=== PATIENT | male | born 1960 | race Caucasian/White ===

== ENCOUNTER 2018-08-06 00:46 | Inpatient (IN) ==
[2018-08-06] MEDS ORDERED: 0.9 % Sodium Chloride 1,000 ML IVC ONE (01:03)
[2018-08-06 01:17] LABS: Eosinophils % 0.8 %; Hemoglobin 8.8 g/dL (12.9-16.9); Immature Granulocytes % 0.5 % (0-4)
[2018-08-06 01:19] LABS: Basophils % 0.5 %; Hematocrit 24.5 % (37.5-50.1); Immature Platelets 2.9 % (1.1-6.1); Lymphocytes # 1.1 K/mcL (0.6-4.6); Lymphocytes % 29.8 %; Mean Corpuscular HGB Conc 35.9 g/dL (31.6-35.5); Mean Corpuscular Hemoglobin 35.3 pg (28.0-33.3); Mean Corpuscular Volume 98.4 fL (83.0-100.0); Mean Platelet Volume 9.6 fL (9.4-12.4); Monocytes # 0.4 K/mcL (0.0-1.3); Monocytes % 11.5 %; Neutrophils # 2.2 K/mcL (1.6-8.9); Red Blood Count 2.49 M/mcL (4.19-5.50); Red Cell Distribution Width 16.9 % (11.5-14.5); Segmented Neutrophils % 56.9 %
[2018-08-06 01:23] LABS: INR 1.5; Prothrombin Time 17.1 Seconds (9.4-12.1)
[2018-08-06 01:26] LABS: Activated Partial Thrombo Time 32.3 Seconds (26.0-36.0)
[2018-08-06 01:29] LABS: Troponin I < 0.03 ng/mL (< 0.04)
[2018-08-06 01:34] LABS: Alanine Aminotransferase 103 Units/L (7-52); Albumin 2.6 g/dL (3.5-5.7); Albumin/Globulin Ratio 0.7 (1.1-2.2); Alkaline Phosphatase 155 Units/L (34-104); Aspartate Amino Transferase 335 Units/L (13-39); BUN/Creatinine Ratio 8 (6-26); Bilirubin,Indirect 0.9 mg/dL (0.0-1.2); Bilirubin,Total 1.9 mg/dL (0.3-1.0); Blood Urea Nitrogen 10 mg/dL (6-20); Calcium 8.3 mg/dL (8.6-10.3); Carbon Dioxide 21 mEq/L (23-29); Chloride 94 mEq/L (98-107); Ethanol 27 mg/dL (Less than 10); Glucose 117 mg/dL (70-105); Osmolality,Calculated 256 (280-300); Potassium 2.4 mEq/L (3.5-5.1); Sodium 123 mEq/L (136-145); Total Protein 6.6 g/dL (6.4-8.9); eGFR For Non-African Americans > 60 (> 60)
[2018-08-06 01:37] LABS: Platelet Count 97 K/mcL (140-400)
[2018-08-06 01:51] LABS: Bilirubin,Urine Moderate (Negative); Blood,Urine Negative (Negative); Clarity,Urine Cloudy (Clear); Color,Urine Dark Yellow (Yellow); Glucose,Urine (UA) Normal (Normal); Ketones,Urine Trace mg/dL (Negative); Leukocyte Esterase,Urine Negative (Negative); Nitrite,Urine Negative (Negative); Protein,Urine Trace mg/dL (Neg-Trace); Specific Gravity,Urine 1.014 (1.010-1.025)
[2018-08-06 01:52] LABS: Bacteria,Urine None Seen per hpf (None-Few); Hyaline Casts,Urine Few per lpf (None-Few)
[2018-08-06 01:59] LABS: Squamous Epithelial Cell,Urine Few per lpf (None-Few)
[2018-08-06 02:02] LABS: Amphetamine Screen,Urine Positive ng/mL (Cutoff=1000); Barbiturate Screen,Urine Negative ng/mL (Cutoff=200); Benzodiazepines Screen,Urine Negative ng/mL (Cutoff=200); Cannabinoid Screen,Urine Negative ng/mL (Cutoff = 50); Cocaine Screen,Urine Negative ng/mL (Cutoff= 300); Opiate Screen,Urine Negative ng/mL (Cutoff=300); Phencyclidine Screen,Urine Negative ng/mL (Cutoff=25)
--- NOTE | 2018-08-06 03:17 | Emergency Department Note ---
Disposition Clinical Impression: Hyperammonemia, Pancytopenia, Hyponatremia Altered mental state Qualifiers: Altered mental status type: unspecified Qualified Code(s): R41.82 - Altered mental status, unspecified Alcoholic intoxication Qualifiers: Complication of substance-induced condition: uncomplicated Qualified Code(s): F10.920 - Alcohol use, unspecified with intoxication, uncomplicated GI bleed Qualifiers: GI bleed type/associated pathology: unspecified gastrointestinal hemorrhage type Qualified Code(s): K92.2 - Gastrointestinal hemorrhage, unspecified Disposition: Admitted As Inpatient Condition: Fair Referrals: NONE,PCP [Non-Partnered Physician] - Time of Disposition: 04:23 Altered Mental Status HPI - General Chief Complaint: ED Altered Mental Status Stated Complaint: unresponsive hypotension Time Seen by Provider: 08/06/18 00:49 Source: patient, EMS Limitations: altered mental status Nursing Notes Reviewed: Yes Vital Signs Reviewed: Yes - History of Present Illness HPI Narrative: Patient is a 58-year-old male who presents to [facility] ED unresponsive via EMS. Patient was found outside of a drug house unresponsive with a laceration to the back of his head. He was given 2 mg of Narcan without response. Upon presenting to emergency department, patient will moan with sternal rub and open his eyes to sternal rub. Is unable to verbally communicate at this time. EMS unsure of patient's medical history. MD complaint: decreased responsiveness Onset (ago): Just SKIAGRAPHER Context: alcohol abuse, drug abuse - Related Data Home Medications Medication Instructions Recorded Confirmed ALPRAZolam [Xanax 1 MG Tablet] 1 mg PO TID PRN 09/29/16 09/29/16 Albuterol Sulfate [Proair 2 puff IH Q4H PRN 09/29/16 09/29/16 Respiclick] Allopurinol [Allopurinol] 300 mg PO DAILY 09/29/16 09/29/16 Amitriptyline [Elavil] 25 mg PO HS 09/29/16 09/29/16 Amlodipine Besylate/Benazepril 1 each PO DAILY 09/29/16 09/29/16 [Lotrel 10-20 mg Capsule] Calcium Carbonate/Vitamin D3 1 each PO DAILY 09/29/16 09/29/16 [Calcium 600 + Vit D Tablet] Carvedilol [Carvedilol] 12.5 mg PO QPM 09/29/16 09/29/16 Carvedilol [Carvedilol] 25 mg PO QAM 09/29/16 09/29/16 Cholecalciferol (Vitamin D3) 50,000 unit PO QWEEK 09/29/16 09/29/16 [Vitamin D] Ezetimibe [Zetia] 10 mg PO DAILY 09/29/16 09/29/16 Fenofibrate [Lofibra] 160 mg PO DAILY 09/29/16 09/29/16 Fluticasone/Salmeterol [Advair 1 each IH BID 09/29/16 09/29/16 250-50 Diskus] Hydrocodone/Acetaminophen [[place] 1 each PO TID PRN 09/29/16 09/29/16 5-325 Tablet] Ipratropium/Albuterol Neb [Duoneb] 3 ml IH QID PRN 09/29/16 09/29/16 Loratadine [Claritin] 10 mg PO DAILY 09/29/16 09/29/16 Omeprazole [PriLOSEC] 20 mg PO BID 09/29/16 09/29/16 Potassium Chloride [K-Tab ER] 20 meq PO DAILY 09/29/16 09/29/16 Tiotropium [place] [Spiriva] 18 mcg IH DAILY 09/29/16 09/29/16 Zolpidem [Ambien] 10 mg PO HS 09/29/16 09/29/16 hydroCHLOROthiazide 25 mg PO DAILY 09/29/16 09/29/16 [Hydrochlorothiazide] Previous Rx's Medication Instructions Recorded Chlordiazepoxide [Librium] 25 mg PO TID 14 Days capsule 10/01/16 LORazepam [Ativan] 1 mg PO TID 6 Days tablet 10/01/16 Sulfamethoxazole/Trimeth DS 1 each PO BID #14 tablet 10/06/16 [Bactrim DS] Allergies Allergy/AdvReac Type Severity Reaction Status Date / Time No Known Allergies Allergy Verified 09/23/16 14:46 All systems ED: reviewed and negative except as stated. Past Medical History - Past Medical History Source: old records reviewed Medical history: Reports: arthritis, COPD, GERD, hyperlipidemia, hypertension, liver disease, seizures, syncope, other Surgical history: Reports: other Psychiatric history: Reports: anxiety, panic disorder - Social History Smoking Status: Current every day smoker Smokeless Tobacco Status: No Alcohol use: Reports: occasionally Drug use: Reports: none Physical Exam - General Limitations: no limitations General appearance: lethargic - Expanded Head Exam Head exam physicial: Present: other (posterior 2cm scalp laceration) - Eye Eye exam: Present: normal appearance, PERRL, EOMI - ENT ENT exam: normal exam, normal oropharynx, mucous membranes moist - Neck Neck exam: Present: normal inspection, full ROM, trachea midline - Chest Chest inspection: Present: normal inspection, symmetric chest wall rise - Respiratory Respiratory exam: Present: normal lung sounds bilaterally - Cardiovascular Cardiovascular exam: Present: regular rate, normal rhythm, normal heart sounds - Abdominal Exam Abdominal exam: Present: soft, Non-Tender. Absent: tenderness, distention, guarding, rebound, rigidity - Extremities Exam Extremities exam: Present: normal inspection, full ROM. Absent: tenderness, pedal edema - Expanded Neurological Exam Patient oriented to: Present: person Coma Scale Eye Opening: To Pain Coma Scale Motor Response: Localizes to Pain Coma Scale Verbal Response: Incomprehensible Coma Scale Total: 9 - Psychiatric Psychiatric exam: Present: normal affect, normal mood - Skin Skin exam: Present: warm, dry, intact, normal color Course Course Narrative: Patient seen and examined. Initially unresponsive. Concern for possible intracranial bleed due to patient's sign of trauma with his head laceration. Patient assessed quickly via ATLS all rhythm. His breath sounds are clear bilaterally. Pulses intact bilaterally. He is hypertensive upon my initial examination. Liter of fluid was pressure bagged in which did improve the patient's blood pressure. His oxygen saturation remained 100% on room air. Initial FAST exam negative for any signs of intra-abdominal hemorrhage. Patient was taken to CT scan in stable condition for CT of the head and cervical spine. We will get a chest and pelvic x-ray as well. - Reevaluation(s) Reevaluation #1: CT of the head and cervical spine unremarkable. Lab work showed signs of elevated ammonia of 100 as well as hypokalemia with potassium of 2.4. 40 mEq IV potassium ordered. In the interim, was discovered that patient has bedbugs. His scalp laceration will be repaired with lance. Patient did wake up some more and was able to tell me his name. He also told me that he took Valium pills. When asked how many, he stated he took around 6. Patient has been admitted for altered mental status, hyperammonemia, alcohol intoxication, Valium overdose. Time: 03:25 Vital Signs Temperature 97.7 F 08/06/18 00:47 Pulse Rate 74 08/06/18 00:47 Respiratory Rate 18 08/06/18 00:47 Blood Pressure 108/68 08/06/18 00:47 O2 Sat by Pulse Oximetry 100 08/06/18 00:47 Temperature 97.0 F L 08/06/18 05:33 Pulse Rate 65 08/06/18 05:33 Respiratory Rate 18 08/06/18 05:33 Blood Pressure 95/71 08/06/18 05:33 O2 Sat by Pulse Oximetry 100 08/06/18 05:33 Oxygen Delivery Oxygen Delivery Nasal Cannula Altered Mental Status - Medical Records Medical records reviewed: Yes I reviewed the patient's medical records. - Lab Data Lab results reviewed: Yes I reviewed the patient's lab results. Result diagrams: 08/06/18 00:48 08/06/18 00:48 Lab Results 08/06/18 08/06/18 08/06/18 Range/Units 00:48 00:48 00:48 WBC 3.8 L (4.3-11.1) K/mcL RBC 2.49 L (4.19-5.50) M/mcL Hgb 8.8 L (12.9-16.9) g/dL Hct 24.5 L (37.5-50.1) % MCV 98.4 (83.0-100.0) fL MCH 35.3 H (28.0-33.3) pg MCHC 35.9 H (31.6-35.5) g/dL RDW 16.9 H (11.5-14.5) % Plt Count 97 L (140-400) K/mcL MPV 9.6 (9.4-12.4) fL Immature Gran % 0.5 (0-4) % Seg Neutrophils % 56.9 % Lymphocytes % 29.8 % Monocytes % 11.5 % Eosinophils % 0.8 % Basophils % 0.5 % Neutrophils # 2.2 (1.6-8.9) K/mcL Lymphocytes # 1.1 (0.6-4.6) K/mcL Monocytes # 0.4 (0.0-1.3) K/mcL Eosinophils # 0.0 (0.0-0.6) K/mcL Basophils # 0.0 (0.0-0.2) K/mcL Immature Plt Fraction 2.9 (1.1-6.1) % PT 17.1 H (9.4-12.1) Seconds INR 1.5 APTT 32.3 (26.0-36.0) Seconds Sodium 123 L (136-145) mEq/L Potassium 2.4 L* (3.5-5.1) mEq/L Chloride 94 L (98-107) mEq/L Carbon Dioxide 21 L (23-29) mEq/L BUN 10 (6-20) mg/dL Creatinine 1.21 (0.70-1.30) mg/dL Est GFR ( Amer) > 60 (> 60) Est GFR (Non-Af Amer) > 60 (> 60) BUN/Creatinine Ratio 8 (6-26) Glucose 117 H (70-105) mg/dL POC Glucose (70-99) mg/dL Calculated Osmolality 256 L (280-300) Calcium 8.3 L (8.6-10.3) mg/dL Total Bilirubin 1.9 H (0.3-1.0) mg/dL Direct Bilirubin 1.0 H (0.0-0.2) mg/dL Indirect Bilirubin 0.9 (0.0-1.2) mg/dL AST 335 H (13-39) Units/L ALT 103 H (7-52) Units/L Alkaline Phosphatase 155 H (34-104) Units/L Ammonia (16-53) mcmol/L Troponin I < 0.03 (< 0.04) ng/mL Serum Total Protein 6.6 (6.4-8.9) g/dL Albumin 2.6 L (3.5-5.7) g/dL Globulin 4.0 H (2.4-3.5) g/dL Albumin/Globulin Ratio 0.7 L (1.1-2.2) Urine Color (Yellow) Urine Clarity (Clear) Urine pH (5.0-8.0) pH Units Ur Specific [place] (1.010-1.025) Urine Protein (Neg-Trace) mg/dL Urine Glucose (UA) (Normal) mg/dL Urine Ketones (Negative) mg/dL Urine Blood (Negative) Urine Nitrite (Negative) Urine Bilirubin (Negative) Urine Urobilinogen (Normal) mg/dL Ur Leukocyte Esterase (Negative) Urine Microscopic RBC (0-3) per hpf Urine Microscopic WBC (0-3) per hpf Ur Squamous Epith Cells (None-Few) per lpf Urine Bacteria (None-Few) per hpf Hyaline Casts (None-Few) per lpf Ur Culture Indicated? (NO) Stool Occult Bld Scrn (Negative) Urine Opiates Screen (Vmrkeu=075) ng/mL Ur Barbiturates Screen (Dcjbqc=381) ng/mL Ur Phencyclidine Scrn (Cutoff=25) ng/mL Ur Amphetamines Screen (Nyaqet=6166) ng/mL U Benzodiazepines Scrn (Qafqya=519) ng/mL Urine Cocaine Screen (Cutoff= 300) ng/mL U Marijuana (THC) Screen (Cutoff = 50) ng/mL Ur Drug Screen Interp Ethyl Alcohol 27 H (Less than 10) mg/dL 08/06/18 08/06/18 08/06/18 Range/Units 00:48 01:40 01:40 WBC (4.3-11.1) K/mcL RBC (4.19-5.50) M/mcL Hgb (12.9-16.9) g/dL Hct (37.5-50.1) % MCV (83.0-100.0) fL MCH (28.0-33.3) pg MCHC (31.6-35.5) g/dL RDW (11.5-14.5) % Plt Count (140-400) K/mcL MPV (9.4-12.4) fL Immature Gran % (0-4) % Seg Neutrophils % % Lymphocytes % % Monocytes % % Eosinophils % % Basophils % % Neutrophils # (1.6-8.9) K/mcL Lymphocytes # (0.6-4.6) K/mcL Monocytes # (0.0-1.3) K/mcL Eosinophils # (0.0-0.6) K/mcL Basophils # (0.0-0.2) K/mcL Immature Plt Fraction (1.1-6.1) % PT (9.4-12.1) Seconds INR APTT (26.0-36.0) Seconds Sodium (136-145) mEq/L Potassium (3.5-5.1) mEq/L Chloride (98-107) mEq/L Carbon Dioxide (23-29) mEq/L BUN (6-20) mg/dL Creatinine (0.70-1.30) mg/dL Est GFR ( Amer) (> 60) Est GFR (Non-Af Amer) (> 60) BUN/Creatinine Ratio (6-26) Glucose (70-105) mg/dL POC Glucose (70-99) mg/dL Calculated Osmolality (280-300) Calcium (8.6-10.3) mg/dL Total Bilirubin (0.3-1.0) mg/dL Direct Bilirubin (0.0-0.2) mg/dL Indirect Bilirubin (0.0-1.2) mg/dL AST (13-39) Units/L ALT (7-52) Units/L Alkaline Phosphatase (34-104) Units/L Ammonia 100 H (16-53) mcmol/L Troponin I (< 0.04) ng/mL Serum Total Protein (6.4-8.9) g/dL Albumin (3.5-5.7) g/dL Globulin (2.4-3.5) g/dL Albumin/Globulin Ratio (1.1-2.2) Urine Color Dark Yellow (Yellow) Urine Clarity Cloudy A (Clear) Urine pH 6.0 (5.0-8.0) pH Units Ur Specific [place] 1.014 (1.010-1.025) Urine Protein Trace (Neg-Trace) mg/dL Urine Glucose (UA) Normal (Normal) mg/dL Urine Ketones Trace H (Negative) mg/dL Urine Blood Negative (Negative) Urine Nitrite Negative (Negative) Urine Bilirubin Moderate H (Negative) Urine Urobilinogen 4.0 H (Normal) mg/dL Ur Leukocyte Esterase Negative (Negative) Urine Microscopic RBC 5-15 H (0-3) per hpf Urine Microscopic WBC 3-5 H (0-3) per hpf Ur Squamous Epith Cells Few (None-Few) per lpf Urine Bacteria None Seen (None-Few) per hpf Hyaline Casts Few (None-Few) per lpf Ur Culture Indicated? NO (NO) Stool Occult Bld Scrn (Negative) Urine Opiates Screen Negative (Tyxkvy=435) ng/mL Ur Barbiturates Screen Negative (Kfkawl=437) ng/mL Ur Phencyclidine Scrn Negative (Cutoff=25) ng/mL Ur Amphetamines Screen Positive H (Mdyuqi=7289) ng/mL U Benzodiazepines Scrn Negative (Uecwkf=231) ng/mL Urine Cocaine Screen Negative (Cutoff= 300) ng/mL U Marijuana (THC) Screen Negative (Cutoff = 50) ng/mL Ur Drug Screen Interp See Below Ethyl Alcohol (Less than 10) mg/dL 08/06/18 08/06/18 Range/Units 02:32 05:31 WBC (4.3-11.1) K/mcL RBC (4.19-5.50) M/mcL Hgb (12.9-16.9) g/dL Hct (37.5-50.1) % MCV (83.0-100.0) fL MCH (28.0-33.3) pg MCHC (31.6-35.5) g/dL RDW (11.5-14.5) % Plt Count (140-400) K/mcL MPV (9.4-12.4) fL Immature Gran % (0-4) % Seg Neutrophils % % Lymphocytes % % Monocytes % % Eosinophils % % Basophils % % Neutrophils # (1.6-8.9) K/mcL Lymphocytes # (0.6-4.6) K/mcL Monocytes # (0.0-1.3) K/mcL Eosinophils # (0.0-0.6) K/mcL Basophils # (0.0-0.2) K/mcL Immature Plt Fraction (1.1-6.1) % PT (9.4-12.1) Seconds INR APTT (26.0-36.0) Seconds Sodium (136-145) mEq/L Potassium (3.5-5.1) mEq/L Chloride (98-107) mEq/L Carbon Dioxide (23-29) mEq/L BUN (6-20) mg/dL Creatinine (0.70-1.30) mg/dL Est GFR ( Amer) (> 60) Est GFR (Non-Af Amer) (> 60) BUN/Creatinine Ratio (6-26) Glucose (70-105) mg/dL POC Glucose 138 H (70-99) mg/dL Calculated Osmolality (280-300) Calcium (8.6-10.3) mg/dL Total Bilirubin (0.3-1.0) mg/dL Direct Bilirubin (0.0-0.2) mg/dL Indirect Bilirubin (0.0-1.2) mg/dL AST (13-39) Units/L ALT (7-52) Units/L Alkaline Phosphatase (34-104) Units/L Ammonia (16-53) mcmol/L Troponin I (< 0.04) ng/mL Serum Total Protein (6.4-8.9) g/dL Albumin (3.5-5.7) g/dL Globulin (2.4-3.5) g/dL Albumin/Globulin Ratio (1.1-2.2) Urine Color (Yellow) Urine Clarity (Clear) Urine pH (5.0-8.0) pH Units Ur Specific [place] (1.010-1.025) Urine Protein (Neg-Trace) mg/dL Urine Glucose (UA) (Normal) mg/dL Urine Ketones (Negative) mg/dL Urine Blood (Negative) Urine Nitrite (Negative) Urine Bilirubin (Negative) Urine Urobilinogen (Normal) mg/dL Ur Leukocyte Esterase (Negative) Urine Microscopic RBC (0-3) per hpf Urine Microscopic WBC (0-3) per hpf Ur Squamous Epith Cells (None-Few) per lpf Urine Bacteria (None-Few) per hpf Hyaline Casts (None-Few) per lpf Ur Culture Indicated? (NO) Stool Occult Bld Scrn Positive A (Negative) Urine Opiates Screen (Aagjjt=417) ng/mL Ur Barbiturates Screen (Ttqilh=902) ng/mL Ur Phencyclidine Scrn (Cutoff=25) ng/mL Ur Amphetamines Screen (Jnvxcn=5181) ng/mL U Benzodiazepines Scrn (Jmbovl=656) ng/mL Urine Cocaine Screen (Cutoff= 300) ng/mL U Marijuana (THC) Screen (Cutoff = 50) ng/mL Ur Drug Screen Interp Ethyl Alcohol (Less than 10) mg/dL - Radiology Data Radiology results reviewed: Yes I reviewed the patient's radiology results. Cervical Spine CT 08/06/18 00:52 IMPRESSION: No acute intracranial abnormality. No acute osseous fracture of the cervical spine. Image quality degraded by motion. D/ / Mike Bazzi / Mike Bazzi Interpreting Provider: Mike Bazzi Head CT 08/06/18 00:52 IMPRESSION: No acute intracranial abnormality. No acute osseous fracture of the cervical spine. Image quality degraded by motion. D/ / Mike Bazzi / Mike Bazzi Interpreting Provider: Mike Bazzi Chest X-Ray 08/06/18 00:59 IMPRESSION: Possible pulmonary edema. Otherwise negative portable chest. D/ / Poli Rodriguez MD / Poli Rodriguez MD Interpreting Provider: Poli Rodriguez MD Pelvis X-Ray 08/06/18 00:59 IMPRESSION: No definite fracture. D/ / Poli Rodriguez MD / Poli Rodriguez MD Interpreting Provider: Poli Rodriguez MD - EKG Data EKG attestation: Yes I reviewed and interpreted this EKG. EKG results narrative: EKG done at 123 shows normal sinus rhythm with a rate of [address] elevation or depression noted. Normal axis. TPA Checklist - LKW: 3-4.5 hrs Add. Warnings/Precautions Patient/family understanding: The patient/family members have been counseled and understood the risk, benefit , and alternatives of treatment. Attestation Statement - Attestation Attestation: I, Tim Wang, examined this patient and my medical decision-making was reviewed with the [employer]/PA/Advanced Practice Nurse/Resident Physician. I agree with the documented findings, disposition and treatment plan as described except to the extent set forth below. 58-year-old male brought to the emergency department for altered mental status. Per EMS, patient was found in the house that has been known for illicit drug use. They state they gave him Narcan with minimal to no improvement of his symptoms. EMS states that he was hypotensive in route to the emergency department. On recheck in the emergency department he has a BP of 108 systolic , he is responsive to painful stimuli, he is however unable to carry a conversation and give a history regarding his case and presentation. EKG showed a normal sinus rhythm with a rate of 71 without evidence of STEMI or other dysrhythmia. Pupils were midsized bilaterally. Repeat dose of Narcan emergency department had no effect. Laboratory evaluation showed a pancytopenia which was not present on previous laboratory results. Rectal exam performed in the emergency department showed brown guaiac negative stool. CT of his head was negative for acute fracture or intracranial hemorrhage or mass. Patient had elevation of his ammonia level. He also had evidence of hypokalemia. At one point during his evaluation the patient awoke enough to report that he had taken "extra of his Valium" he reported taking about 5 pills of his Valium which is an unknown strength. Patient was not given lactulose in the emergency department as diarrhea would make his hypokalemia worse. I spoke with the hospitalist who is comfortable with the plan for admission to hospital for repletion of his potassium and then further evaluation of his hyperammonemia. Vital signs stable prior to admission.
[2018-08-06] MEDS ORDERED: cefTRIAXone 2,000 MG in Water for inj. (sterile) 20 ML 20 ML IVP ONE (03:28)
[2018-08-06] MEDS ORDERED: *HR* LORazepam 2 MG/ML VIAL IVP PRN ×2 (04:09)
[2018-08-06] MEDS ORDERED: Naloxone 0.4 MG/ML INJ IVP PRN (04:09)
--- NOTE | 2018-08-06 04:33 | Internal Med History&Physical ---
<Reji aBnuelos - Last Filed: 08/06/18 04:26> Date of Encounter: 08/06/18 Time of Encounter: 04:26 Internal Medicine - H&P: HPI Chief complaint: unresponsive Admitted From: Home Plans for Post Hospital Care: Home History of present illness: Mr. Taylor is a 58 year old male presented to emergency department unresponsive via EMS. History is obtained from EMR's as patient is not responding to any questions. Patient was found outside of drug house unresponsive with a laceration in the back of his head. He was given Narcan without any response in the emergency room. And only responded to sternal rub initially. Patient underwent CT of the head, chest x-ray pelvis x-ray and cervical spine CT which were all negative. FAST exam was negative as per ER. His labs showed hemoglobin 8.8 which is a decline from his baseline of 12. Patient, was 97 which is also decline from platelet count of 200s in March 2018. Ammonia was 100. INR is elevated 1.5. Patient was hyponatremic with a sodium 123, hypokalemic with potassium of 2.4. Fecal occult blood was positive. Urinalysis positive for amphetamines. Elevated alcohol level of 27. Patient was given 40 mEq IV potassium by ER. From reviewing medical records, patient has history of alcoholic cirrhosis. He previously presented to the emergency room on March 2018 for jaundice. In the past his UDS has been positive for benzodiazepines as well. He has also been admitted for withdrawal seizures from alcohol. Upon my examination the patient , he was very somnolent and now responding to verbal stimuli however does not answer any questions and clinically falls asleep. About one hour after my examination ER called and reported patient is more awake and took five valium pills (unknown dose). Past Med Surg Social Fam HX - Past Medical History Medical history: arthritis, COPD, GERD, hyperlipidemia, hypertension, liver disease, seizures, syncope, other Psychiatric history: anxiety, panic disorder - Past Surgical History Surgical History: other Additional surgical history: eye surgery - Social History Smoking Status: Current every day smoker Smokeless Tobacco Status: No Alcohol use: occasionally, heavy Drug use: methamphetamine, other (Benzodiazepine) Internal Medicine - H&P: Meds Amlodipine Besylate/Benazepril [Lotrel 10-20 mg Capsule] 1 each PO DAILY [History] Omeprazole [PriLOSEC] 20 mg PO BID 09/29/16 [History] hydroCHLOROthiazide [Hydrochlorothiazide] 25 mg PO DAILY 09/29/16 [History] Albuterol Sulfate [Ventolin Hfa] 2 puff IH Q6H PRN 08/06/18 [History] Fluticasone/Vilanterol [Breo Ellipta 100-25 Mcg INH] 1 puff IH DAILY 08/06/18 [ History] Metoprolol [Lopressor] 25 mg PO BID 08/06/18 [History] Paroxetine [Paxil] 20 mg PO DAILY 08/06/18 [History] hydrOXYzine pamoate [HydrOXYzine Pamoate] 25 - 50 mg PO Q6H PRN 08/06/18 [ History] Folic Acid 1 mg PO DAILY #30 tablet 08/09/18 [Rx] Pantoprazole [Protonix] 40 mg IVP DAILY #30 vial 08/09/18 [Rx] Thiamine (B-1) [Vitamin B-1] 100 mg PO DAILY #30 tablet 08/09/18 [Rx] hydroCHLOROthiazide [Hydrochlorothiazide] 25 mg PO DAILY #30 tablet 08/09/18 [Rx ] 3 Allergy/AdvReac Type Severity Reaction Status Date / Time No Known Allergies Allergy Verified 09/23/16 14:46 ROS unobtainable: due to mental status All Systems PM: A 10-system review of systems was performed and is negative for pertinent findings except as documented above in the HPI. - Constitutional Vitals: Temp Pulse Resp BP Pulse Ox 97.7 F 63 18 98/66 100 08/06/18 00:47 08/06/18 04:18 08/06/18 04:18 08/06/18 04:18 08/06/18 04:18 Exam: General: Disheveled, somnolent male HEENT: Laceration on the occipital region stapled with some dried blood, PERRL, absent ear discharge or trauma, unable to do a well examined due to patient not cooperating. Neck: nontender to palpation, absent lymphadenopathy, Cardiovascualr: Regular rate and rhythm with no murmur, gallops or rubs, absent pedal adenma, radial pulses 2 out of 4 Lungs: Clear to auscultation bilaterally, not in respiratory distress Abdomen: Soft nontender, nondistended positive bowel sounds, Skin: warm and dry, absent rash, open wounds, nodules MSK: absent clubbing, cyanosis, joints without swelling Neuro: Unable to do neuro exam due to patient not cooperating. Awakens to verbal stimuli Psych: Unable to do due to mental status Internal Med - H&P Results - Labs CBC & Chem 7: 08/06/18 00:48 08/06/18 00:48 - Assessment and plan (1) Hepatic encephalopathy Status: Acute Assessment and plan: 58 y/o male presented unresponsive. Brought to ED via EMS after being found in front of drug house Patient has history of alcohol some, hepatitis C, cirrhosis, drug use His ammonia was elevated 100, AST ALTs, bilirubin were also elevated currently awakens to verbal stimuli but quickly dozes off plan: liver US, repeat CMP, NPO, if encephalopathy worsens may need lactulose enemas. swallow eval (2) GI bleed Status: Acute Assessment and plan: hgb decreased from 12-8.8 + stool guiac no known hx of varacies BP stable will start protonix 40mg IV BID consult GI clear liquid diet Qualifiers: GI bleed type/associated pathology: unspecified gastrointestinal hemorrhage type Qualified Code(s): K92.2 - Gastrointestinal hemorrhage, unspecified (3) Cirrhosis Status: Chronic Assessment and plan: hx of cirrhosis likely alcoholic as he has extensive hx of alcohol abuse however also has history of Hepatitis C Meld-NA 25 (14-15% 90 day mortality) liver US ordered GI consulted. Qualifiers: Hepatic cirrhosis type: alcoholic cirrhosis Ascites presence: unspecified Qualified Code(s): K70.30 - Alcoholic cirrhosis of liver without ascites (4) Illicit drug use Status: Acute Assessment and plan: hx of benzodiazepine, amphetamine use Patient himself reports that he took 5 pills of Valium and his UDS was positive for amphetamines. Of alcohol was elevated at 27 (5) Hypokalemia Status: Chronic Assessment and plan: Patient has history of hypokalemia Potassium was on admission and he is receiving IV potassium will give potassium 40meq Po elixer once patient has passed swallow eval. (6) Hyponatremia Status: Acute Assessment and plan: Patient's sodium is 123 which is belowline Likely secondary to cirrhosis We will order serum osmolality, urine osmolality, urine sodium No indication for 3% normal saline (7) Alcohol abuse with alcohol-induced disorder Status: Acute (8) Hepatitis C Status: Acute Assessment and plan: Patient had a positive hepatitis C antibody on 09/30/16 GI was consulted and recommend patient follow-up GI outpatient. Qualifiers: Viral hepatitis chronicity: unspecified Hepatic coma status: without hepatic coma Qualified Code(s): B19.20 - Unspecified viral hepatitis C without hepatic coma (9) DVT prophylaxis Status: Acute Assessment and plan: epcds, - Time Spent With Patient Total time spent is greater than 50% in coordination of care (as documented) at patient's floor/unit and/or counseling patient: <Galileo Calderon - Last Filed: 08/10/18 11:28> Date of Encounter: 08/06/18 Internal Medicine - H&P: HPI History of present illness: Mr. Taylor is a 58 year old male All Systems PM: A 10-system review of systems was performed and is negative for pertinent findings except as documented above in the HPI. - Constitutional Vitals: Temp Pulse Resp BP Pulse Ox 98.1 F 60 14 147/84 99 08/09/18 15:36 08/09/18 16:00 08/09/18 16:00 08/09/18 16:00 08/09/18 16:00 Internal Med - H&P Results - Labs CBC & Chem 7: 08/09/18 04:29 08/09/18 04:29 - Impressions ITS Impressions Liver Ultrasound 08/06/18 15:00 IMPRESSION: Cirrhosis with a trace amount of ascites. Sludge within the gallbladder with associated wall thickening. Trace amount of fluid in the gallbladder fossa likely related to underlying liver dysfunction. Patient has no reported sonographic Mcghee sign. If there is clinical concern for biliary dysfunction a nuclear medicine hepatobiliary scan could always be considered to further evaluate. D/ / 08/06/2018 16:37:22 Law Cameron MD / [facility] Interpreting Provider: Law Cameron MD - Assessment and plan (1) Alcohol abuse with alcohol-induced disorder Status: Acute (2) Hepatitis C Status: Chronic Qualifiers: Viral hepatitis chronicity: unspecified Hepatic coma status: without hepatic coma Qualified Code(s): B19.20 - Unspecified viral hepatitis C without hepatic coma (3) Hepatic encephalopathy Status: Resolved (4) Illicit drug use Status: Acute (5) GI bleed Status: Acute Qualifiers: GI bleed type/associated pathology: unspecified gastrointestinal hemorrhage type Qualified Code(s): K92.2 - Gastrointestinal hemorrhage, unspecified (6) Hypokalemia Status: Chronic (7) Hyponatremia Status: Resolved (8) Cirrhosis Status: Chronic Qualifiers: Hepatic cirrhosis type: alcoholic cirrhosis Ascites presence: unspecified Qualified Code(s): K70.30 - Alcoholic cirrhosis of liver without ascites (9) DVT prophylaxis Status: Acute - Time Spent With Patient Total time spent is greater than 50% in coordination of care (as documented) at patient's floor/unit and/or counseling patient: - Attending Attestation Patient seen and examined. Case discussed with resident. Agree with A/P. Encephalopathy likely medication induced. R/O other causes.
[2018-08-06] MEDS: Pantoprazole 40 MG VIAL IVP SCH ×2 (05:57→17:47)
[2018-08-06] MEDS ORDERED: Lidocaine -MPF 2% 2 ML VIAL ONE (07:27)
[2018-08-06 07:40] LABS: Basophils % 0.7 %; Immature Granulocytes % 0.7 % (0-4); Mean Platelet Volume 9.2 fL (9.4-12.4); Segmented Neutrophils % 56.7 %
[2018-08-06 07:41] LABS: Eosinophils % 1.4 %; Hematocrit 24.9 % (37.5-50.1); Hemoglobin 8.9 g/dL (12.9-16.9); Immature Platelets 2.4 % (1.1-6.1); Lymphocytes # 0.9 K/mcL (0.6-4.6); Lymphocytes % 29.5 %; Mean Corpuscular HGB Conc 35.7 g/dL (31.6-35.5); Mean Corpuscular Hemoglobin 35.3 pg (28.0-33.3); Mean Corpuscular Volume 98.8 fL (83.0-100.0); Monocytes # 0.3 K/mcL (0.0-1.3); Red Blood Count 2.52 M/mcL (4.19-5.50); Red Cell Distribution Width 16.9 % (11.5-14.5)
[2018-08-06 07:51] LABS: Alanine Aminotransferase 95 Units/L (7-52); Albumin 2.5 g/dL (3.5-5.7); Albumin/Globulin Ratio 0.7 (1.1-2.2); Alkaline Phosphatase 158 Units/L (34-104); Aspartate Amino Transferase 303 Units/L (13-39); BUN/Creatinine Ratio 12 (6-26); Bilirubin,Total 1.7 mg/dL (0.3-1.0); Blood Urea Nitrogen 10 mg/dL (6-20); Calcium 8.1 mg/dL (8.6-10.3); Carbon Dioxide 20 mEq/L (23-29); Chloride 100 mEq/L (98-107); Globulin 3.8 g/dL (2.4-3.5); Glucose 120 mg/dL (70-105); Osmolality,Calculated 266 (280-300); Potassium 2.6 mEq/L (3.5-5.1); Sodium 128 mEq/L (136-145); Total Protein 6.3 g/dL (6.4-8.9); eGFR For Non-African Americans > 60 (> 60)
[2018-08-06 07:53] LABS: Neutrophils # 1.6 K/mcL (1.6-8.9); Platelet Count 84 K/mcL (140-400)
--- NOTE | 2018-08-06 08:32 | Gastroenterology Consult Note ---
<Patrick Regan - Last Filed: 08/06/18 09:26> Date of Encounter: 08/06/18 Time of Encounter: 08:31 - Assessment and plan (1) GI bleed Current Visit: Yes Status: Acute Assessment and plan: - Patients hemoglobin has decreased from 12-8.9 - FOBT was positive - Patient has a known history of alcoholic cirrhosis, but no known history of varices - Patient is currently hemodynamically stable Plan: - Plan for EGD on thursday; NPO thursday at midnight - Currently on Protonix 40 mg IV twice a day - Octreotide drip at 50/hr Qualifiers: GI bleed type/associated pathology: unspecified gastrointestinal hemorrhage type Qualified Code(s): K92.2 - Gastrointestinal hemorrhage, unspecified (2) Hepatic encephalopathy Current Visit: Yes Status: Acute Assessment and plan: Patient presented completely unresponsive - Known history of alcohol use, hepatitis C, cirrhosis, and drug use - Transaminase levels were elevated; ammonia level elevated at 100 Plan: - Liver ultrasound pending - Currently nothing by mouth - Plan for EGD on thursday - CIWA protocol (3) Cirrhosis Current Visit: Yes Status: Chronic Assessment and plan: Patient has a known history of cirrhosis - Known history of hepatitis C and extensive history of alcohol abuse - Total bilirubin 1.7, direct bilirubin 1.0, indirect bilirubin 0.9 - AST 303, ALT 95, alkaline phosphatase 158 - Ammonia 100, Albumin 2.5 - MELD score: 21 Plan: - Liver ultrasound pending - Banana bag - Correct electrolyte imbalances Qualifiers: Hepatic cirrhosis type: alcoholic cirrhosis Ascites presence: unspecified Qualified Code(s): K70.30 - Alcoholic cirrhosis of liver without ascites - Time Spent With Patient Total time spent is greater than 50% in coordination of care (as documented) at patient's floor/unit and/or counseling patient: GI History of Present Illness - Data of Consult Requesting Physician: Leydi Nunez MD - Consult Narrative History of present illness: Mr. Taylor is a 58-year-old male who presented to the emergency department via EMS unresponsive. Per EMS, patient was found outside of the drug house completely unresponsive and with a laceration on the back of his head. Patient was given Narcan with no response in the ED. He underwent CT of the head, chest x-ray, pelvic x-ray, and cervical spine CT, all of which were negative. Laboratory analysis demonstrated hemoglobin of 8.8, which is a decline from his baseline at 12. Patients platelet count was also 97, down from 200. His ammonia level was 100. INR was elevated at 1.5. He was hyponatremic with sodium 123, and a potassium of 2.4. FOBT was positive. Urine toxicology demonstrated the presence of amphetamines. Alcohol was elevated at 27. Patient has a known history of alcoholic cirrhosis. He previously presented to the ED on March 2018 for jaundice. Patient seen and examined at bedside; patient is not responsive; appears very somnolent. Does not answer questions or respond to verbal commands. Past Med Surg Social Fam HX - Past Medical History Medical history: arthritis, COPD, GERD, hyperlipidemia, hypertension, liver disease, seizures, syncope, other Psychiatric history: anxiety, panic disorder - Past Surgical History Surgical History: other Additional surgical history: eye surgery - Social History Smoking Status: Current every day smoker Smokeless Tobacco Status: No Alcohol use: occasionally Drug use: none ROS unobtainable: due to mental status - Constitutional Vitals: Temp Pulse Resp BP Pulse Ox 95.7 F L 58 16 95/71 100 08/06/18 07:36 08/06/18 06:51 08/06/18 06:51 08/06/18 05:33 08/06/18 06:51 - Other Additional findings: General: Somnolent and unresponsive Head: Laceration on back of head Eyes: no scleral icterus Neck: Supple, trachea midline Cardiovascualr: RRR, S1, S2, no murmurs, rubs, or gallops Lungs: CTAB; no wheezes, rales, rhonchi Abdomen: Soft nontender, nondistended, no ascites Skin: Laceration on back of head. No jaundice Extremities: No clubbing, edema, or cyanosis Neuro: Somnolent and unresponsive Psych: Somnolent and unresponsive Results - Labs CBC & Chem 7: 08/06/18 06:54 08/06/18 06:54 Labs: Last Result Calcium 8.1 mg/dL (8.6-10.3) L 08/06/18 06:54 Troponin I < 0.03 ng/mL (< 0.04) 08/06/18 00:48 Urine Opiates Screen Negative ng/mL (Bishig=288) 08/06/18 01:40 Entire Visit Hgb 8.9 g/dL (12.9-16.9) L 08/06/18 06:54 Hct 24.9 % (37.5-50.1) L 08/06/18 06:54 PT 17.1 Seconds (9.4-12.1) H 08/06/18 00:48 Total Bilirubin 1.7 mg/dL (0.3-1.0) H 08/06/18 06:54 AST 303 Units/L (13-39) H 08/06/18 06:54 ALT 95 Units/L (7-52) H 08/06/18 06:54 Ammonia 100 mcmol/L (16-53) H 08/06/18 00:48 - ABG ABG results: PT/INR, D-dimer PT 17.1 Seconds (9.4-12.1) H 08/06/18 00:48 Consult Discharge Plan - Plan Referrals: Danny Brooks DO [Resident] - 08/16/18 11:00 am <Flori Dolan - Last Filed: 08/06/18 10:18> Date of Encounter: 08/06/18 - Time Spent With Patient Total time spent is greater than 50% in coordination of care (as documented) at patient's floor/unit and/or counseling patient: GI History of Present Illness - Data of Consult Requesting Physician: Leydi Nunez MD - Consult Narrative History of present illness: Mr. Taylor is a 58 year old male - Constitutional Vitals: Temp Pulse Resp BP Pulse Ox 97.7 F 58 16 95/71 100 08/06/18 09:10 08/06/18 06:51 08/06/18 06:51 08/06/18 05:33 08/06/18 06:51 Results - Labs CBC & Chem 7: 08/06/18 06:54 08/06/18 06:54 Labs: Last Result Calcium 8.1 mg/dL (8.6-10.3) L 08/06/18 06:54 Troponin I < 0.03 ng/mL (< 0.04) 08/06/18 00:48 Urine Opiates Screen Negative ng/mL (Lelwjf=270) 08/06/18 01:40 Entire Visit Hgb 8.9 g/dL (12.9-16.9) L 08/06/18 06:54 Hct 24.9 % (37.5-50.1) L 08/06/18 06:54 PT 17.1 Seconds (9.4-12.1) H 08/06/18 00:48 Total Bilirubin 1.7 mg/dL (0.3-1.0) H 08/06/18 06:54 AST 303 Units/L (13-39) H 08/06/18 06:54 ALT 95 Units/L (7-52) H 08/06/18 06:54 Ammonia 100 mcmol/L (16-53) H 08/06/18 00:48 - ABG ABG results: PT/INR, D-dimer PT 17.1 Seconds (9.4-12.1) H 08/06/18 00:48 - Attending Attestation I have personally performed a face to face evaluation on this patient. I have reviewed and agree with the care plan. History and Exam by me shows: patient seen with the DR Regan. is drowsy but arousable on examination abdomen . Rectal examination stool are brown. Assessment: Patient with cirrhosis( hep C/alcoholism) now with encephalopathy multifactorial including drug-induced. Has anemia but no overt GI bleeding. Recommendation: Correction of electrolytes dehydration. we will give him vitamin K subcut and will also will be on octreotide infusion. No indication for urgent EGD . WILL DO EGD when clinically is more stable including correction of his electrolytes etc.
--- NOTE | 2018-08-06 09:22 | Internal Med Progress Note ---
<Luca Medeiros - Last Filed: 08/06/18 09:22> Hospitalist Progress Note - Encounter Date of Encounter: 08/06/18 - Exam Vitals: Temp Pulse Resp BP Pulse Ox 97.7 F 58 16 95/71 100 08/06/18 09:10 08/06/18 06:51 08/06/18 06:51 08/06/18 05:33 08/06/18 06:51 - Time Spent with Patient Total time spent is greater than 50% in coordination of care (as documented) at patient's floor/unit and/or counseling patient: Internal Medicine: Result - Labs CBC & Chem 7: 08/06/18 06:54 08/06/18 06:54 Labs: Short CBC 08/06/18 Range/Units 06:54 WBC 2.9 L (4.3-11.1) K/mcL Hgb 8.9 L (12.9-16.9) g/dL Hct 24.9 L (37.5-50.1) % Plt Count 84 L (140-400) K/mcL Neutrophils # 1.6 (1.6-8.9) K/mcL BMP 08/06/18 06:54 Sodium 128 L Potassium 2.6 L Chloride 100 Carbon Dioxide 20 L BUN 10 Creatinine 0.83 Glucose 120 H Calcium 8.1 L Liver Function 08/06/18 Range/Units 06:54 Total Bilirubin 1.7 H (0.3-1.0) mg/dL AST 303 H (13-39) Units/L ALT 95 H (7-52) Units/L Alkaline Phosphatase 158 H (34-104) Units/L Albumin 2.5 L (3.5-5.7) g/dL - ABG Interpretation ABG results: PT/INR, D-dimer PT 17.1 Seconds (9.4-12.1) H 08/06/18 00:48 Consult Discharge Plan - Plan Referrals: Danny Brooks DO [Resident] - 08/16/18 11:00 am (You will receive a packet in the mail please fill it out and take with you to your appointment. Also take a picture ID, Insurance cards, and all medications including over the counter. This office does not give out controlled meds. If you need to cancel please call [phone] 24 hours prior to your appointment) Flori Dolan MD [Partnered Physician] - (SENT WEB REQUEST ON 08-06-18 @ [id number]) <Leydi Nunez - Last Filed: 08/06/18 14:05> Hospitalist Progress Note - Encounter Date of Encounter: 08/06/18 Time of Encounter: 10:50 - Exam Vitals: Temp Pulse Resp BP Pulse Ox 97.3 F L 60 16 114/74 99 08/06/18 11:10 08/06/18 11:10 08/06/18 11:10 08/06/18 11:10 08/06/18 11:10 Exam: . - Assessment and Plan (1) Alcohol abuse with alcohol-induced disorder Current Visit: Yes Status: Acute (2) Hepatitis C Current Visit: Yes Status: Acute (3) Hepatic encephalopathy Current Visit: Yes Status: Acute (4) Illicit drug use Current Visit: Yes Status: Acute (5) GI bleed Current Visit: Yes Status: Acute (6) Hypokalemia Current Visit: Yes Status: Chronic (7) Hyponatremia Current Visit: Yes Status: Acute (8) Cirrhosis Current Visit: Yes Status: Chronic (9) DVT prophylaxis Current Visit: Yes Status: Acute - Time Spent with Patient Total time spent is greater than 50% in coordination of care (as documented) at patient's floor/unit and/or counseling patient: Internal Medicine: Result - Labs CBC & Chem 7: 08/06/18 06:54 08/06/18 10:38 Labs: Short CBC 08/06/18 Range/Units 06:54 WBC 2.9 L (4.3-11.1) K/mcL Hgb 8.9 L (12.9-16.9) g/dL Hct 24.9 L (37.5-50.1) % Plt Count 84 L (140-400) K/mcL Neutrophils # 1.6 (1.6-8.9) K/mcL BMP 08/06/18 08/06/18 06:54 10:38 Sodium 128 L 129 L Potassium 2.6 L 2.7 L Chloride 100 Carbon Dioxide 20 L BUN 10 Creatinine 0.83 Glucose 120 H Calcium 8.1 L Liver Function 08/06/18 Range/Units 06:54 Total Bilirubin 1.7 H (0.3-1.0) mg/dL AST 303 H (13-39) Units/L ALT 95 H (7-52) Units/L Alkaline Phosphatase 158 H (34-104) Units/L Albumin 2.5 L (3.5-5.7) g/dL - ABG Interpretation ABG results: PT/INR, D-dimer PT 17.1 Seconds (9.4-12.1) H 08/06/18 00:48 - Attending Attestation I saw this patient and my medical decision-making was reviewed with the Resident Physician. I agree with the documented findings, disposition and treatment plan as described except to any changes set forth below. Patient currently very somnolent. Awakes but not able to stay awake. Gastroenterology recommends starting octreotide drip. Will continue. Liver ultrasound pending. Will give patient lactulose post-liver ultrasound. Monitor vital signs. Treat symptomatically. <Leydi Nunez - Last Filed: 08/06/18 14:05> (2) Hepatitis C Qualifiers: Viral hepatitis chronicity: unspecified Hepatic coma status: without hepatic coma Qualified Code(s): B19.20 - Unspecified viral hepatitis C without hepatic coma (5) GI bleed Qualifiers: GI bleed type/associated pathology: unspecified gastrointestinal hemorrhage type Qualified Code(s): K92.2 - Gastrointestinal hemorrhage, unspecified (8) Cirrhosis Qualifiers: Hepatic cirrhosis type: alcoholic cirrhosis Ascites presence: unspecified Qualified Code(s): K70.30 - Alcoholic cirrhosis of liver without ascites
[2018-08-06] MEDS ORDERED: MVI, adult with vitamin K 10 ML in 0.9 % Sodium Chloride 1,000 ML IVC ONE (09:28)
[2018-08-06] MEDS: Octreotide 400 MCG in 0.9 % Sodium Chloride 100 ML IVC SCH ×2 (10:27→17:47)
[2018-08-06] MEDS: Potassium Chloride Elixir 20 MEQ/15 ML UDC PO SCH ×2 (10:37→20:48)
[2018-08-06] MEDS ORDERED: Lactulose Oral Soln 20 GM/30 ML UDC PO PRN (11:07)
[2018-08-06] MEDS ORDERED: Lactulose 200 GM, Sodium Chloride IRRigation 700 ML RC ONE (11:08)
[2018-08-06 13:25] LABS: Potassium 2.7 mEq/L (3.5-5.1)
[2018-08-06] MEDS ORDERED: Octreotide 50 MCG/ML SYRINGE IVP SCH (16:00)
[2018-08-06] MEDS: *HR* LORazepam 2 MG/ML VIAL IVP PRN (16:30)
[2018-08-06] MEDS: Thiamine (B-1) 100 MG, Folic Acid 1 MG, MVI, adult with vitamin K 10 ML in 0.9 % Sodi... IVPB SCH (17:48)
[2018-08-06] MEDS: Lactulose Oral Soln 20 GM/30 ML UDC PO SCH (20:49)
[2018-08-06] MEDS ORDERED: Lactulose Oral Soln 20 GM/30 ML UDC PO SCH (21:00)
[2018-08-07] MEDS: Octreotide 400 MCG in 0.9 % Sodium Chloride 100 ML IVC SCH ×3 (02:18→17:46)
[2018-08-07 04:17] LABS: Basophils % 0.8 %; Eosinophils # 0.1 K/mcL (0.0-0.6); Eosinophils % 1.9 %; Hematocrit 25.3 % (37.5-50.1); Hemoglobin 8.8 g/dL (12.9-16.9); Lymphocytes # 0.5 K/mcL (0.6-4.6); Lymphocytes % 19.6 %; Mean Corpuscular HGB Conc 34.8 g/dL (31.6-35.5); Mean Corpuscular Hemoglobin 34.9 pg (28.0-33.3); Mean Corpuscular Volume 100.4 fL (83.0-100.0); Mean Platelet Volume 9.5 fL (9.4-12.4); Monocytes # 0.3 K/mcL (0.0-1.3); Monocytes % 12.3 %; Neutrophils # 1.7 K/mcL (1.6-8.9); Red Blood Count 2.52 M/mcL (4.19-5.50); Red Cell Distribution Width 17.2 % (11.5-14.5); Segmented Neutrophils % 65.4 %
[2018-08-07 04:18] LABS: BUN/Creatinine Ratio 8 (6-26); Blood Urea Nitrogen 6 mg/dL (6-20); Carbon Dioxide 22 mEq/L (23-29); Chloride 103 mEq/L (98-107); Glucose 176 mg/dL (70-105); Osmolality,Calculated 274 (280-300); Potassium 3.1 mEq/L (3.5-5.1); Sodium 131 mEq/L (136-145); eGFR For Non-African Americans > 60 (> 60)
[2018-08-07 04:20] LABS: Platelet Count 80 K/mcL (140-400)
[2018-08-07 04:25] LABS: INR 1.5; Prothrombin Time 16.6 Seconds (9.4-12.1)
[2018-08-07 04:28] LABS: Activated Partial Thrombo Time 31.9 Seconds (26.0-36.0)
[2018-08-07] MEDS: Pantoprazole 40 MG VIAL IVP SCH ×2 (06:25→17:45)
[2018-08-07] MEDS: Lactulose Oral Soln 20 GM/30 ML UDC PO SCH ×2 (08:41→20:31)
[2018-08-07] MEDS: Potassium Chloride Elixir 20 MEQ/15 ML UDC PO SCH (09:11)
[2018-08-07] MEDS: hydrOXYzine pamoate 25 MG CAPSULE PO PRN ×2 (09:53→17:46)
--- NOTE | 2018-08-07 11:22 | Internal Med Progress Note ---
Hospitalist Progress Note - Encounter Date of Encounter: 08/07/18 Time of Encounter: 08:45 - Subjective Interval History: Patient is more awake and alert. Has not had any episodes of hematemesis or melena. Reports that he feels anxious and is going to have a panic attacks. However he does appear calm and answers questions appropriately. - Exam Vitals: Temp Pulse Resp BP Pulse Ox 98.0 F 100 17 126/91 97 08/07/18 08:36 08/07/18 08:36 08/07/18 08:36 08/07/18 08:36 08/07/18 08:36 Exam: General: Patient is alert, no acute distress, oriented x 3 Respiratory: Good respiratory effort. Normal breath sounds. No wheezing or crackles. Cardiovascular: Regular rate and rhythm. s1 and s2 normal No clicks, rubs, gallops, or murmurs. No pedal edema Abdomen: Abdomen is soft, nontender. Bowel sounds are present Musculoskeletal: Spontaneously moving all extremities Skin: warm, dry, intact, pallor Neuro: Alert oriented x 3 normal cranial nerves, no focal deficits Psych: Flat affect - Assessment and Plan (1) GI bleed Current Visit: Yes Status: Acute Assessment and Plan: Suspected upper GI bleed. Stool positive for occult blood. No new episodes of GI bleed at this time. Gastroenterology consult appreciated. Continue IV PPI and octreotide. Plan for upper GI endoscopy on Thursday. We will continue to monitor blood counts. Hemoglobin stable at this time. (2) Alcohol abuse with alcohol-induced disorder Current Visit: Yes Status: Acute Assessment and Plan: Counseled about cessation and patient willing to consider substance abuse program. gro[facility] worker consult. We will continue to monitor for withdrawal. (3) Hepatitis C Current Visit: Yes Status: Chronic Assessment and Plan: Supportive care. On thiamine and folic acid (4) Hepatic encephalopathy Current Visit: Yes Status: Acute Assessment and Plan: Improved. Continue lactulose (5) Illicit drug use Current Visit: Yes Status: Acute Assessment and Plan: Counseled about cessation. grove worker consult. (6) Hypokalemia Current Visit: Yes Status: Chronic Assessment and Plan: Continue repletion (7) Hyponatremia Current Visit: Yes Status: Chronic Assessment and Plan: Chronic. could be related to cirrhosis (8) Cirrhosis Current Visit: Yes Status: Chronic Assessment and Plan: Portal care. Continue thiamine and folic acid. (9) DVT prophylaxis Current Visit: Yes Status: Acute Assessment and Plan: Low platelets so mechanical anticoagulation with EPCDs - Time Spent with Patient Total time spent is greater than 50% in coordination of care (as documented) at patient's floor/unit and/or counseling patient: Internal Medicine: Result - Labs CBC & Chem 7: 08/07/18 03:35 08/07/18 03:35 Labs: Short CBC 08/07/18 Range/Units 03:35 WBC 2.6 L (4.3-11.1) K/mcL Hgb 8.8 L (12.9-16.9) g/dL Hct 25.3 L (37.5-50.1) % Plt Count 80 L (140-400) K/mcL Neutrophils # 1.7 (1.6-8.9) K/mcL BMP 08/06/18 08/06/18 08/06/18 10:38 13:20 17:19 Sodium 129 L 130 L 128 L Potassium 2.7 L Chloride Carbon Dioxide BUN Creatinine Glucose Calcium 08/07/18 03:35 Sodium 131 L Potassium 3.1 L Chloride 103 Carbon Dioxide 22 L BUN 6 Creatinine 0.71 Glucose 176 H Calcium 8.0 L - ABG Interpretation ABG results: PT/INR, D-dimer PT 16.6 Seconds (9.4-12.1) H 08/07/18 03:35 - Impressions Impressions Liver Ultrasound 08/06/18 15:00 IMPRESSION: Cirrhosis with a trace amount of ascites. Sludge within the gallbladder with associated wall thickening. Trace amount of fluid in the gallbladder fossa likely related to underlying liver dysfunction. Patient has no reported sonographic Mcghee sign. If there is clinical concern for biliary dysfunction a nuclear medicine hepatobiliary scan could always be considered to further evaluate. D/ / 08/06/2018 16:37:22 Law Cameron MD / yer Interpreting Provider: Law Cameron MD - VTE Documentation of Mechanical Device: Intermittent pneumatic compression device Consult Discharge Plan - Plan Referrals: Danny Brooks DO [Resident] - 08/16/18 11:00 am (You will receive a packet in the mail please fill it out and take with you to your appointment. Also take a picture ID, Insurance cards, and all medications including over the counter. This office does not give out controlled meds. If you need to cancel please call [phone] 24 hours prior to your appointment) Flori Dolan MD [Partnered Physician] - (SENT WEB REQUEST ON 08-06-18 @ [phone]) (1) GI bleed Qualifiers: GI bleed type/associated pathology: unspecified gastrointestinal hemorrhage type Qualified Code(s): K92.2 - Gastrointestinal hemorrhage, unspecified (3) Hepatitis C Qualifiers: Viral hepatitis chronicity: unspecified Hepatic coma status: without hepatic coma Qualified Code(s): B19.20 - Unspecified viral hepatitis C without hepatic coma (8) Cirrhosis Qualifiers: Hepatic cirrhosis type: alcoholic cirrhosis Ascites presence: unspecified Qualified Code(s): K70.30 - Alcoholic cirrhosis of liver without ascites
--- NOTE | 2018-08-07 11:40 | Electrocardiograph Report ---
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
[2018-08-07] MEDS: Thiamine (B-1) 100 MG, Folic Acid 1 MG, MVI, adult with vitamin K 10 ML in 0.9 % Sodi... IVPB SCH (17:43)
[2018-08-07] MEDS: *HR* LORazepam 2 MG/ML VIAL IVP PRN (22:01)
[2018-08-08] MEDS: Octreotide 400 MCG in 0.9 % Sodium Chloride 100 ML IVC SCH ×2 (02:29→10:14)
[2018-08-08] MEDS: Pantoprazole 40 MG VIAL IVP SCH ×2 (06:30→16:54)
[2018-08-08 06:48] LABS: Eosinophils % 1.3 %; Red Cell Distribution Width 17.4 % (11.5-14.5)
[2018-08-08 06:50] LABS: Immature Granulocytes % 0.6 % (0-4); Immature Platelets 1.6 % (1.1-6.1); Lymphocytes % 30.8 %; Mean Corpuscular HGB Conc 34.6 g/dL (31.6-35.5); Mean Corpuscular Hemoglobin 35.2 pg (28.0-33.3); Mean Corpuscular Volume 101.6 fL (83.0-100.0); Mean Platelet Volume 9.1 fL (9.4-12.4); Monocytes # 0.4 K/mcL (0.0-1.3); Monocytes % 13.7 %; Neutrophils # 1.7 K/mcL (1.6-8.9); Red Blood Count 2.56 M/mcL (4.19-5.50); Segmented Neutrophils % 52.6 %
[2018-08-08 06:52] LABS: Platelet Count 83 K/mcL (140-400)
[2018-08-08 07:11] LABS: BUN/Creatinine Ratio 11 (6-26); Blood Urea Nitrogen 7 mg/dL (6-20); Calcium 7.9 mg/dL (8.6-10.3); Carbon Dioxide 26 mEq/L (23-29); Chloride 104 mEq/L (98-107); Glucose 214 mg/dL (70-105); Osmolality,Calculated 284 (280-300); Potassium 3.7 mEq/L (3.5-5.1); Sodium 135 mEq/L (136-145); eGFR For Non-African Americans > 60 (> 60)
[2018-08-08] MEDS: Lactulose Oral Soln 20 GM/30 ML UDC PO SCH ×2 (08:06→20:53)
[2018-08-08] MEDS: Lisinopril 20 MG TABLET PO SCH (08:06)
[2018-08-08] MEDS: amLODIPine 5 MG TABLET PO SCH (08:06)
[2018-08-08 08:28] LABS: Platelet Estimate Decreased (Normal); Reactive Lymphocytes Present (Not Present)
--- NOTE | 2018-08-08 13:19 | Internal Med Progress Note ---
Hospitalist Progress Note - Encounter Date of Encounter: 08/08/18 Time of Encounter: 09:50 - Subjective Interval History: Patient is doing well today. Denies any new complaints. No new episodes of hematemesis or melena. No abdominal pain. Anxiety is better controlled. No signs of acute alcohol withdrawal at this time. - Exam Vitals: Temp Pulse Resp BP Pulse Ox 98.7 F 69 18 145/81 98 08/08/18 11:45 08/08/18 11:45 08/08/18 11:45 08/08/18 11:45 08/08/18 11:45 Exam: General: Patient is alert, no acute distress, oriented x 3 Respiratory: Good respiratory effort. Normal breath sounds. No wheezing or crackles. Cardiovascular: Regular rate and rhythm. s1 and s2 normal No clicks, rubs, gallops, or murmurs. No pedal edema Abdomen: Abdomen is soft, nontender. Bowel sounds are present Musculoskeletal: Spontaneously moving all extremities Neuro: Alert oriented x 3 normal cranial nerves, no focal deficits Psych: Flat affect - Assessment and Plan (1) GI bleed Current Visit: Yes Status: Acute Assessment and Plan: Hemoglobin levels are stable. No new episodes of GI bleed. Plan for upper GI endoscopy tomorrow. Continue PPI. Keep nothing by mouth after midnight. Moderate risk for complications. (2) Alcohol abuse with alcohol-induced disorder Current Visit: Yes Status: Acute Assessment and Plan: Continue to monitor for withdrawal. On [facility] protocol. (3) Hepatitis C Current Visit: Yes Status: Chronic Assessment and Plan: Supportive care. Continue thiamine, folic acid (4) Hepatic encephalopathy Current Visit: Yes Status: Resolved Assessment and Plan: Resolved. Continue lactulose (5) Illicit drug use Current Visit: Yes Status: Acute Assessment and Plan: [facility] assisted living consult. Patient has been counseled (6) Hypokalemia Current Visit: Yes Status: Chronic (7) Hyponatremia Current Visit: Yes Status: Resolved (8) Cirrhosis Current Visit: Yes Status: Chronic Assessment and Plan: Continue management as above with thiamine and folic acid. (9) DVT prophylaxis Current Visit: Yes Status: Acute Assessment and Plan: With SCDs - Time Spent with Patient Total time spent is greater than 50% in coordination of care (as documented) at patient's floor/unit and/or counseling patient: Internal Medicine: Result - Labs CBC & Chem 7: 08/08/18 06:26 08/08/18 06:26 Labs: Short CBC 08/08/18 Range/Units 06:26 WBC 3.2 L (4.3-11.1) K/mcL Hgb 9.0 L (12.9-16.9) g/dL Hct 26.0 L (37.5-50.1) % Plt Count 83 L (140-400) K/mcL Neutrophils # 1.7 (1.6-8.9) K/mcL BMP 08/08/18 06:26 Sodium 135 L Potassium 3.7 Chloride 104 Carbon Dioxide 26 BUN 7 Creatinine 0.66 L Glucose 214 H Calcium 7.9 L - ABG Interpretation ABG results: PT/INR, D-dimer PT 16.6 Seconds (9.4-12.1) H 08/07/18 03:35 - VTE Documentation of Mechanical Device: Intermittent pneumatic compression device Consult Discharge Plan - Plan Referrals: Danny Brooks DO [Resident] - 08/16/18 11:00 am (You will receive a packet in the mail please fill it out and take with you to your appointment. Also take a picture ID, Insurance cards, and all medications including over the counter. This office does not give out controlled meds. If you need to cancel please call [phone] 24 hours prior to your appointment) Flori Dolan MD [Partnered Physician] - (SENT WEB REQUEST ON 08-06-18 @ [phone]) (1) GI bleed Qualifiers: GI bleed type/associated pathology: unspecified gastrointestinal hemorrhage type Qualified Code(s): K92.2 - Gastrointestinal hemorrhage, unspecified (3) Hepatitis C Qualifiers: Viral hepatitis chronicity: unspecified Hepatic coma status: without hepatic coma Qualified Code(s): B19.20 - Unspecified viral hepatitis C without hepatic coma (8) Cirrhosis Qualifiers: Hepatic cirrhosis type: alcoholic cirrhosis Ascites presence: unspecified Qualified Code(s): K70.30 - Alcoholic cirrhosis of liver without ascites
[2018-08-08] MEDS: Thiamine (B-1) 100 MG, Folic Acid 1 MG, MVI, adult with vitamin K 10 ML in 0.9 % Sodi... IVPB SCH (16:55)
[2018-08-08] MEDS: *HR* LORazepam 2 MG/ML VIAL IVP PRN (20:54)
[2018-08-09 05:07] LABS: Immature Granulocytes % 0.3 % (0-4); Red Blood Count 2.71 M/mcL (4.19-5.50)
[2018-08-09 05:09] LABS: Basophils % 1.2 %; Eosinophils # 0.1 K/mcL (0.0-0.6); Eosinophils % 1.8 %; Hematocrit 28.1 % (37.5-50.1); Hemoglobin 9.6 g/dL (12.9-16.9); Mean Corpuscular HGB Conc 34.2 g/dL (31.6-35.5); Mean Corpuscular Hemoglobin 35.4 pg (28.0-33.3); Mean Corpuscular Volume 103.7 fL (83.0-100.0); Mean Platelet Volume 9.5 fL (9.4-12.4); Monocytes # 0.5 K/mcL (0.0-1.3); Monocytes % 14.2 %; Red Cell Distribution Width 17.6 % (11.5-14.5); Segmented Neutrophils % 50.5 %
[2018-08-09 05:14] LABS: Lymphocytes # 1.1 K/mcL (0.6-4.6); Neutrophils # 1.7 K/mcL (1.6-8.9); Platelet Count 86 K/mcL (140-400)
[2018-08-09 05:21] LABS: Alanine Aminotransferase 77 Units/L (7-52); Albumin 2.6 g/dL (3.5-5.7); Albumin/Globulin Ratio 0.6 (1.1-2.2); Alkaline Phosphatase 138 Units/L (34-104); Aspartate Amino Transferase 160 Units/L (13-39); BUN/Creatinine Ratio 14 (6-26); Bilirubin,Total 1.7 mg/dL (0.3-1.0); Blood Urea Nitrogen 9 mg/dL (6-20); Calcium 8.1 mg/dL (8.6-10.3); Carbon Dioxide 28 mEq/L (23-29); Chloride 107 mEq/L (98-107); Globulin 4.5 g/dL (2.4-3.5); Glucose 103 mg/dL (70-105); Osmolality,Calculated 283 (280-300); Potassium 3.6 mEq/L (3.5-5.1); Sodium 137 mEq/L (136-145); Total Protein 7.1 g/dL (6.4-8.9); eGFR For Non-African Americans > 60 (> 60)
[2018-08-09] MEDS: Pantoprazole 40 MG VIAL IVP SCH (06:05)
--- NOTE | 2018-08-09 08:37 | Internal Med Progress Note ---
Hospitalist Progress Note - Encounter Date of Encounter: 08/09/18 - Exam Vitals: Temp Pulse Resp BP Pulse Ox 99.3 F 73 18 161/99 96 08/09/18 08:09 08/09/18 08:09 08/09/18 08:09 08/09/18 08:09 08/09/18 08:09 - Time Spent with Patient Total time spent is greater than 50% in coordination of care (as documented) at patient's floor/unit and/or counseling patient: Internal Medicine: Result - Labs CBC & Chem 7: 08/09/18 04:29 08/09/18 04:29 Labs: Short CBC 08/09/18 Range/Units 04:29 WBC 3.3 L (4.3-11.1) K/mcL Hgb 9.6 L (12.9-16.9) g/dL Hct 28.1 L (37.5-50.1) % Plt Count 86 L (140-400) K/mcL Neutrophils # 1.7 (1.6-8.9) K/mcL BMP 08/09/18 04:29 Sodium 137 Potassium 3.6 Chloride 107 Carbon Dioxide 28 BUN 9 Creatinine 0.66 L Glucose 103 Calcium 8.1 L Liver Function 08/09/18 Range/Units 04:29 Total Bilirubin 1.7 H (0.3-1.0) mg/dL AST 160 H (13-39) Units/L ALT 77 H (7-52) Units/L Alkaline Phosphatase 138 H (34-104) Units/L Albumin 2.6 L (3.5-5.7) g/dL - ABG Interpretation ABG results: PT/INR, D-dimer PT 16.6 Seconds (9.4-12.1) H 08/07/18 03:35 - VTE Documentation of Mechanical Device: Intermittent pneumatic compression device Consult Discharge Plan - Plan Referrals: Danny Brooks DO [Resident] - 08/16/18 11:00 am (You will receive a packet in the mail please fill it out and take with you to your appointment. Also take a picture ID, Insurance cards, and all medications including over the counter. This office does not give out controlled meds. If you need to cancel please call [phone] 24 hours prior to your appointment) Flori Dolan MD [Partnered Physician] - (SENT WEB REQUEST ON 08-06-18 @ [phone])
[2018-08-09] MEDS ORDERED: hydroCHLOROthiazide 25 MG TABLET PO SCH (09:00)
[2018-08-09] MEDS: Lisinopril 20 MG TABLET PO SCH (10:20)
[2018-08-09] MEDS: Lactulose Oral Soln 20 GM/30 ML UDC PO SCH (10:20)
[2018-08-09] MEDS: amLODIPine 5 MG TABLET PO SCH (10:20)
[2018-08-09] MEDS: hydrOXYzine pamoate 25 MG CAPSULE PO PRN (10:26)
--- NOTE | 2018-08-09 11:34 | Anesthesia Evaluation PreOp ---
Date of Encounter: 08/09/18 Time of Encounter: 14:48 - Past History Planned Operation: EGD Cardiac History: HTN Other Medical History: Hepatic (HEP C, CIRRHOSIS, HEPATIC ENCEPHALOPATHY), Bleeding (GI BLLED) Alcohol Use: heavy Drug use: methamphetamine Medications and Allergies Amlodipine Besylate/Benazepril [Lotrel 10-20 mg Capsule] 1 each PO DAILY [History] Omeprazole [PriLOSEC] 20 mg PO BID 09/29/16 [History] hydroCHLOROthiazide [Hydrochlorothiazide] 25 mg PO DAILY 09/29/16 [History] Albuterol Sulfate [Ventolin Hfa] 2 puff IH Q6H PRN 08/06/18 [History] Fluticasone/Vilanterol [Breo Ellipta 100-25 Mcg INH] 1 puff IH DAILY 08/06/18 [ History] Metoprolol [Lopressor] 25 mg PO BID 08/06/18 [History] Paroxetine [Paxil] 20 mg PO DAILY 08/06/18 [History] hydrOXYzine pamoate [HydrOXYzine Pamoate] 25 - 50 mg PO Q6H PRN 08/06/18 [ History] 3 Allergy/AdvReac Type Severity Reaction Status Date / Time No Known Allergies Allergy Verified 09/23/16 14:46 - Meds/Allergy Pre-op Review Medications Reviewed: Yes Allergies Reviewed: Yes Beta Blockers on Current Med List: No Anesthesia Results - Labs 08/09/18 04:29 08/09/18 04:29 Laboratory Last Values WBC 3.3 K/mcL (4.3-11.1) L 08/09/18 04:29 RBC 2.71 M/mcL (4.19-5.50) L 08/09/18 04:29 Hgb 9.6 g/dL (12.9-16.9) L 08/09/18 04:29 Hct 28.1 % (37.5-50.1) L 08/09/18 04:29 MCV 103.7 fL (83.0-100.0) H 08/09/18 04:29 MCH 35.4 pg (28.0-33.3) H 08/09/18 04:29 MCHC 34.2 g/dL (31.6-35.5) 08/09/18 04:29 RDW 17.6 % (11.5-14.5) H 08/09/18 04:29 Plt Count 86 K/mcL (140-400) L 08/09/18 04:29 MPV 9.5 fL (9.4-12.4) 08/09/18 04:29 Immature Gran % 0.3 % (0-4) 08/09/18 04:29 Seg Neutrophils % 50.5 % 08/09/18 04:29 Lymphocytes % 32.0 % 08/09/18 04:29 Monocytes % 14.2 % 08/09/18 04:29 Eosinophils % 1.8 % 08/09/18 04:29 Basophils % 1.2 % 08/09/18 04:29 Neutrophils # 1.7 K/mcL (1.6-8.9) 08/09/18 04:29 Lymphocytes # 1.1 K/mcL (0.6-4.6) 08/09/18 04:29 Monocytes # 0.5 K/mcL (0.0-1.3) 08/09/18 04:29 Eosinophils # 0.1 K/mcL (0.0-0.6) 08/09/18 04:29 Basophils # 0.0 K/mcL (0.0-0.2) 08/09/18 04:29 Reactive Lymphocytes Present (Not Present) A 08/08/18 06:26 Platelet Estimate Decreased (Normal) L 08/08/18 06:26 Immature Plt Fraction 2.0 % (1.1-6.1) 08/09/18 04:29 PT 16.6 Seconds (9.4-12.1) H 08/07/18 03:35 INR 1.5 08/07/18 03:35 APTT 31.9 Seconds (26.0-36.0) 08/07/18 03:35 Sodium 137 mEq/L (136-145) 08/09/18 04:29 Potassium 3.6 mEq/L (3.5-5.1) 08/09/18 04:29 Chloride 107 mEq/L (98-107) 08/09/18 04:29 Carbon Dioxide 28 mEq/L (23-29) 08/09/18 04:29 BUN 9 mg/dL (6-20) 08/09/18 04:29 Creatinine 0.66 mg/dL (0.70-1.30) L 08/09/18 04:29 Est GFR ( Amer) > 60 (> 60) 08/09/18 04:29 Est GFR (Non-Af Amer) > 60 (> 60) 08/09/18 04:29 BUN/Creatinine Ratio 14 (6-26) 08/09/18 04:29 Glucose 103 mg/dL (70-105) 08/09/18 04:29 POC Glucose 270 mg/dL (70-99) H 08/06/18 17:00 Serum Osmolality 273 mOsm/kg (280-300) L 08/06/18 06:54 Calculated Osmolality 283 (280-300) 08/09/18 04:29 Calcium 8.1 mg/dL (8.6-10.3) L 08/09/18 04:29 Total Bilirubin 1.7 mg/dL (0.3-1.0) H 08/09/18 04:29 Direct Bilirubin 1.0 mg/dL (0.0-0.2) H 08/06/18 00:48 Indirect Bilirubin 0.9 mg/dL (0.0-1.2) 08/06/18 00:48 AST 160 Units/L (13-39) H 08/09/18 04:29 ALT 77 Units/L (7-52) H 08/09/18 04:29 Alkaline Phosphatase 138 Units/L (34-104) H 08/09/18 04:29 Ammonia 100 mcmol/L (16-53) H 08/06/18 00:48 Troponin I < 0.03 ng/mL (< 0.04) 08/06/18 00:48 Serum Total Protein 7.1 g/dL (6.4-8.9) 08/09/18 04:29 Albumin 2.6 g/dL (3.5-5.7) L 08/09/18 04:29 Globulin 4.5 g/dL (2.4-3.5) H 08/09/18 04:29 Albumin/Globulin Ratio 0.6 (1.1-2.2) L 08/09/18 04:29 TSH 1.649 mcIU/mL (0.340-5.600) 08/06/18 06:54 Urine Color Dark Yellow (Yellow) 08/06/18 01:40 Urine Clarity Cloudy (Clear) A 08/06/18 01:40 Urine pH 6.0 pH Units (5.0-8.0) 08/06/18 01:40 Ur Specific [place] 1.014 (1.010-1.025) 08/06/18 01:40 Urine Protein Trace mg/dL (Neg-Trace) 08/06/18 01:40 Urine Glucose (UA) Normal mg/dL (Normal) 08/06/18 01:40 Urine Ketones Trace mg/dL (Negative) H 08/06/18 01:40 Urine Blood Negative (Negative) 08/06/18 01:40 Urine Nitrite Negative (Negative) 08/06/18 01:40 Urine Bilirubin Moderate (Negative) H 08/06/18 01:40 Urine Urobilinogen 4.0 mg/dL (Normal) H 08/06/18 01:40 Ur Leukocyte Esterase Negative (Negative) 08/06/18 01:40 Urine Microscopic RBC 5-15 per hpf (0-3) H 08/06/18 01:40 Urine Microscopic WBC 3-5 per hpf (0-3) H 08/06/18 01:40 Ur Squamous Epith Cells Few per lpf (None-Few) 08/06/18 01:40 Urine Bacteria None Seen per hpf (None-Few) 08/06/18 01:40 Hyaline Casts Few per lpf (None-Few) 08/06/18 01:40 Ur Culture Indicated? NO (NO) 08/06/18 01:40 Urine Osmolality 123 mOsm/kg (300-1090) L 08/06/18 06:50 Urine Sodium 28.8 mEq/L 08/06/18 06:50 Stool Occult Bld Scrn Positive (Negative) A 08/06/18 02:32 Urine Opiates Screen Negative ng/mL (Iugmpc=818) 08/06/18 01:40 Ur Barbiturates Screen Negative ng/mL (Nnwwnb=211) 08/06/18 01:40 Ur Phencyclidine Scrn Negative ng/mL (Cutoff=25) 08/06/18 01:40 Ur Amphetamines Screen Positive ng/mL (Pcfohr=0467) H 08/06/18 01:40 U Benzodiazepines Scrn Negative ng/mL (Tibbsz=391) 08/06/18 01:40 Urine Cocaine Screen Negative ng/mL (Cutoff= 300) 08/06/18 01:40 U Marijuana (THC) Screen Negative ng/mL (Cutoff = 50) 08/06/18 01:40 Ur Drug Screen Interp See Below 08/06/18 01:40 Ethyl Alcohol 27 mg/dL (Less than 10) H 08/06/18 00:48 Blood Type O POSITIVE 08/06/18 10:38 Antibody Screen NEGATIVE 08/06/18 10:38 Anesthesia Exam Vital Signs/O2 Sat, Most Current Temp Pulse Resp BP Pulse Ox 99.3 F 72 18 161/99 96 08/09/18 08:09 08/09/18 10:27 08/09/18 08:09 08/09/18 08:09 08/09/18 08:09 HEIGHT 1.78 m WEIGHT 64 kg BMI 20 NPO (# of Hours): 8 - HEENT Mallampati: II Teeth: Missing (ONLY LOWER INC, PREMOLARS, AND 1ST MOLARS PRESENT) Oral Opening: Greater than 3 - INSTRUCTIONAL SERVICES LIBRARIAN LOC: Oriented (AA, O3) - Cardiac Rhythm: Regular - Pulmonary Breath Sounds: bilateral Clear Respiratory Effort: Symmetrical - Additional Findings Active Medications Albuterol Sulfate (Albuterol Inhaler) 2 puff IH Q6H PRN PRN Reason: Dyspnea Stop: 02/06/19 11:26 Amlodipine Besylate (Norvasc) 10 mg PO DAILY KALE Stop: 02/07/19 09:01 Last Admin: 08/09/18 10:20 Dose: 10 mg Hydrochlorothiazide (Hydrochlorothiazide) 25 mg PO DAILY KALE PRN Reason: Protocol Stop: 02/08/19 09:01 Last Admin: 08/09/18 10:20 Dose: 25 mg Hydroxyzine Pamoate (Hydroxyzine Pamoate) 25 mg PO QID PRN PRN Reason: Anxiety Stop: 02/06/19 09:01 Last Admin: 08/09/18 10:26 Dose: 25 mg Lactulose (Lactulose) 20 gm PO BID KALE Stop: 02/05/19 21:01 Last Admin: 08/09/18 10:20 Dose: 20 gm Lisinopril (Zestril) 20 mg PO DAILY [facility] Stop: 02/07/19 09:01 Last Admin: 08/09/18 10:20 Dose: 20 mg Metoprolol Tartrate (Lopressor) 25 mg PO BID [facility]ALE Stop: 02/06/19 21:01 Last Admin: 08/09/18 10:20 Dose: 25 mg Pantoprazole Sodium (Protonix) 40 mg IVP Q12HR [facility] Stop: 02/05/19 06:01 Last Admin: 08/09/18 06:05 Dose: 40 mg Paroxetine HCl (Paxil) 20 mg PO DAILY [facility] PRN Reason: Protocol Stop: 02/06/19 11:31 Last Admin: 08/09/18 10:20 Dose: 20 mg Potassium Chloride (Potassium Chloride) 40 meq PO BIDWM [facility] Stop: 02/06/19 17:01 Last Admin: 08/09/18 10:20 Dose: 40 meq Anesthesia Assess/Plan ASA Score: 4 Modified Fausto Scale for Level of Consciousness: Cooperative, oriented, and tranquil Anesthetic Plan: MAC Monitoring Plan: Standard Monitors Recovery Plan: Other
--- NOTE | 2018-08-09 13:20 | Discharge Summary ---
<MayraLeydi - Last Filed: 08/09/18 15:58> Orders not resulted at time of discharge: Pending orders 08/09/18 09:33 Hepatitis Prof.(Routine A,B,C) Routine 08/09/18 15:10 Surgical Pathology [PTH] Routine Date of Encounter: 08/09/18 Time of Encounter: 16:00 - Discharge Diagnosis (1) GI bleed Status: Acute Qualifiers: GI bleed type/associated pathology: unspecified gastrointestinal hemorrhage type Qualified Code(s): K92.2 - Gastrointestinal hemorrhage, unspecified (2) Alcohol abuse with alcohol-induced disorder Status: Acute (3) Hepatitis C Status: Chronic Qualifiers: Viral hepatitis chronicity: unspecified Hepatic coma status: without hepatic coma Qualified Code(s): B19.20 - Unspecified viral hepatitis C without hepatic coma (4) Hepatic encephalopathy Status: Resolved (5) Illicit drug use Status: Acute (6) Hypokalemia Status: Chronic (7) Hyponatremia Status: Resolved (8) Cirrhosis Status: Chronic Qualifiers: Hepatic cirrhosis type: alcoholic cirrhosis Ascites presence: unspecified Qualified Code(s): K70.30 - Alcoholic cirrhosis of liver without ascites (9) DVT prophylaxis Status: Acute Hospital course: Mr. Taylor is a 58 year old male - Time Spent with Patient Total time spent providing and/or coordinating discharge services: Less than 30 minutes (25 min) - Discharge Medications Prescriptions: Folic Acid 1 mg PO DAILY #30 tablet hydroCHLOROthiazide [Hydrochlorothiazide] 25 mg PO DAILY #30 tablet Pantoprazole [Protonix] 40 mg IVP DAILY #30 vial Thiamine (B-1) [Vitamin B-1] 100 mg PO DAILY #30 tablet Home Medications: Amlodipine Besylate/Benazepril [Lotrel 10-20 mg Capsule] 1 each PO DAILY [History] Omeprazole [PriLOSEC] 20 mg PO BID 09/29/16 [History] hydroCHLOROthiazide [Hydrochlorothiazide] 25 mg PO DAILY 09/29/16 [History] Albuterol Sulfate [Ventolin Hfa] 2 puff IH Q6H PRN 08/06/18 [History] Fluticasone/Vilanterol [Breo Ellipta 100-25 Mcg INH] 1 puff IH DAILY 08/06/18 [ History] Metoprolol [Lopressor] 25 mg PO BID 08/06/18 [History] Paroxetine [Paxil] 20 mg PO DAILY 08/06/18 [History] hydrOXYzine pamoate [HydrOXYzine Pamoate] 25 - 50 mg PO Q6H PRN 08/06/18 [ History] Folic Acid 1 mg PO DAILY #30 tablet 08/09/18 [Rx] Pantoprazole [Protonix] 40 mg IVP DAILY #30 vial 08/09/18 [Rx] Thiamine (B-1) [Vitamin B-1] 100 mg PO DAILY #30 tablet 08/09/18 [Rx] hydroCHLOROthiazide [Hydrochlorothiazide] 25 mg PO DAILY #30 tablet 08/09/18 [Rx ] Allergies/Adverse Reactions: 3 Allergy/AdvReac Type Severity Reaction Status Date / Time No Known Allergies Allergy Verified 09/23/16 14:46 Date of admission: 08/06/18 06:39 Primary care physician: PCP NONE - Constitutional Vitals: Temp Pulse Resp BP Pulse Ox 98.1 F 64 17 155/94 100 08/09/18 15:36 08/09/18 15:36 08/09/18 15:36 08/09/18 15:36 08/09/18 15:36 - Patient Status Disposition: Home, Self-Care Condition: Fair - Discharge Instructions Follow Up With: [facility] [Outside] - 08/12/18 2:00 pm (Appointment to see Marleni Lynn. Please arrive 20 minutes early.) Danny Brooks DO [Resident] - 08/16/18 11:00 am (You will receive a packet in the mail please fill it out and take with you to your appointment. Also take a picture ID, Insurance cards, and all medications including over the counter. This office does not give out controlled meds. If you need to cancel please call [phone] 24 hours prior to your appointment) Flori Dolan MD [Partnered Physician] - (SENT WEB REQUEST ON 08-06-18 @ 3125) Additional Instructions: - Take blood pressure medicine everyday. -Take Protonix everyday - Take thiamine, folic acid every day. - Attending Attestation I saw evaluated and examined this patient and my medical decision-making was reviewed with the Resident Physician, Luca Medeiros. I agree with the documented findings, disposition and treatment plan as described except to any changes set forth below. We independently had [id number] contact with the patient. 58-year-old male patient with history of alcohol and drug abuse who was hospitalized here with acute encephalopathy and anemia with suspicion of GI bleed. He was treated with IV fluids and his hemoglobin levels were monitored. 6. Gastroenterology was consulted and per their recommendations, patient was started on intravenous Protonix and octreotide. His blood counts have since been stabilized. He is now doing much better. Tolerating oral diet. No episodes of hematemesis or melena. He underwent upper GI endoscopy today. Was found to have portal gastropathy. This will need to be followed up with surveillance in one year. At this time, patient is clinically stable to be discharged home on oral PPI. He will follow up with GI as outpatient. He has been referred for for outpatient drug rehabilitation. On exam, patient is awake and alert. Heart sounds are normal. Abdomen is soft nontender. <Luca Medeiros - Last Filed: 08/09/18 17:26> - NOTES TO OUTPATIENT PROVIDER Notes to Outpatient Provider: - f/u with gasterenterologist as an outpatient for cirrosis. - call [facility]pline, [phone] to help with alcohol cessation. -Up with primary care doctor for regular blood work to check liver function. Orders not resulted at time of discharge: Pending orders 08/09/18 09:33 Hepatitis Prof.(Routine A,B,C) Routine Date of Encounter: 08/09/18 Time of Encounter: 13:00 - Discharge Diagnosis (1) Altered mental state Priority: Primary Status: Acute Qualifiers: Altered mental status type: unspecified Qualified Code(s): R41.82 - Altered mental status, unspecified (2) Alcoholism /alcohol abuse Priority: Secondary Status: Chronic (3) Hyperammonemia Priority: Secondary Status: Acute (4) GI bleed Priority: Secondary Status: Acute Qualifiers: GI bleed type/associated pathology: unspecified gastrointestinal hemorrhage type Qualified Code(s): K92.2 - Gastrointestinal hemorrhage, unspecified Hospital course: Mr. Taylor is a 58 year old male the past medical history of alcoholic cirrhosis, hep C, alcohol abuse, COPD who was admitted to the floor because of unresponsiveness. Initial workup was negative for any intracranial bleed, his FAST exam was negative, CT of the belly was negative. Patient was found to have elevated ammonia of 100, INR 1.5, and a positive Hemoccult test. AST and MALT were 303 and 95 respectively to admission . His urine was positive for amphetamines and alcohol was 27. He was put on CIWA protocol for alcohol withdrawal. Patient had a decreased hemoglobin on his day 2 of admission from 12-8.9, and was put on octreotide drip at 50/hour patient was also put on lactulose 20 mg PO twice a day for his hepatic encephalopathy. Patient had an EGD today which showed no evidence of any varices, but had portal hypertensive gastropathy found in the gastric body. Patient has been recommended to have a follow-up EGD in 1 year from now. His hospital stay was pretty unremarkable. He scored a 2 on his most recent CIWA, is more A&O today, and is deemed fit for discharge . Patient has been advised to go to an inpatient drug rehabilitation facility. However , patient has refused to do that, and the bilingual case manager has helped him currently get an appointment to go to an out-patient drug rehab called [facility] on at 2pm. - Time Spent with Patient Total time spent providing and/or coordinating discharge services: Date of admission: 08/06/18 06:39 Primary care physician: PCP NONE - Constitutional Vitals: Temp Pulse Resp BP Pulse Ox 98.8 F 65 18 173/109 97 08/09/18 12:08/09/18 12:40 08/09/18 12:09 08/09/18 12:09 08/09/18 12:09 General appearance: Present: A&O X 3 Exam: General: Patient is alert, no acute distress, oriented x 3 Respiratory: Good respiratory effort. Normal breath sounds. No wheezing or crackles. Cardiovascular: Regular rate and rhythm. s1 and s2 normal No clicks, rubs, gallops, or murmurs. No pedal edema Abdomen: Abdomen is soft, nontender. Bowel sounds are present Musculoskeletal: Spontaneously moving all extremities Neuro: Alert oriented x 3 normal cranial nerves, no focal deficits - Head Head exam: Present: atraumatic, normal inspection, normocephalic - Respiratory Respiratory exam: Present: CTAB (No rhonchi, rales or wheezing.) - Cardiovascular Cardiovascular exam: Present: RRR, +S1, +S2 - GI/Abdominal GI/Abdominal exam: Present: soft (On tender, nondistended) - Extremities Exam Extremities exam: Present: full ROM, normal inspection, warm - Patient Status Functional capacity at discharge: independent ambulation Overall status at discharge: patient is progressing back to baseline - Diet and Activity Activity: increase activity as tolerated Diet: low fat, low cholesterol, low salt diet - VTE Documentation of Mechanical Device: Intermittent pneumatic compression device
[2018-08-09] MEDS ORDERED: Lidocaine -MPF 2% 2 ML VIAL ONE (13:53)
[2018-08-09] MEDS ORDERED: *HR* Propofol 200 MG/20 ML VIAL IVP ONE (13:53)
[2018-08-09] MEDS ORDERED: Tetracaine/Benzocaine/Butamben 200MG/SPRAY (100SPY/BOT) MM ONE (14:52)
[2018-08-09] MEDS ORDERED: Simethicone 40 MG/0.6 ML MLS IR ONE (14:52)
[2018-08-09] MEDS ORDERED: 0.9 % Sodium Chloride 500 ML IVC SCH (15:00)
[2018-08-09 16:21] VITALS: BP 147/84
[2018-08-10] MEDS ORDERED: Thiamine (B-1) 100 MG TABLET PO SCH (09:00)
== END 2018-08-09 19:17 | disposition home or self-care (01) | DRG 52 ==
LOC: EMEROOARM 00:46 → 2NNU 00:46 → SUATTDRO 06:39
PROVIDERS: ADMIT Pediatrics; ATTEND Internal Medicine
PROC: ENDOEBX (2018-08-09 14:00)

== ENCOUNTER 2018-08-23 19:57 | Inpatient (IN) ==
[2018-08-23 20:35] LABS: Basophils % 0.3 %; Eosinophils % 0.6 %; Hematocrit 32.3 % (37.5-50.1); Immature Granulocytes % 0.7 % (0-4); Lymphocytes # 1.1 K/mcL (0.6-4.6); Lymphocytes % 15.5 %; Mean Corpuscular HGB Conc 36.2 g/dL (31.6-35.5); Mean Corpuscular Volume 93.9 fL (83.0-100.0); Mean Platelet Volume 10.6 fL (9.4-12.4); Monocytes # 0.5 K/mcL (0.0-1.3); Monocytes % 7.6 %; Platelet Count 141 K/mcL (140-400); Red Blood Count 3.44 M/mcL (4.19-5.50); Red Cell Distribution Width 16.6 % (11.5-14.5); Segmented Neutrophils % 75.3 %
--- NOTE | 2018-08-23 20:35 | Emergency Department Note ---
Disposition Clinical Impression: Hepatic encephalopathy Liver failure Qualifiers: Liver failure chronicity: unspecified chronicity Hepatic coma status: with hepatic coma Qualified Code(s): K72.91 - Hepatic failure, unspecified with coma Disposition: Admitted As Inpatient Condition: Serious Altered Mental Status HPI - General Chief Complaint: ED Altered Mental Status Stated Complaint: AMS Time Seen by Provider: 08/23/18 20:04 Source: EMS Mode of arrival: EMS Limitations: altered mental status Nursing Notes Reviewed: Yes Vital Signs Reviewed: Yes - History of Present Illness HPI Narrative: 58-year-old male history of prior hepatitis and alcohol abuse who presents to the ER for altered mental status. History is severely limited secondary to the patient's mental status. EMS was called for altered mental status. The patient has no idea why he is here. He is alert and oriented 2. He vocalizes no complaints at this time. He is unsure if he is always jaundice. MD complaint: altered mental status Onset (ago): unknown Context: alcohol abuse, liver disease - Related Data Home Medications Medication Instructions Recorded Confirmed Amlodipine Besylate/Benazepril 1 each PO DAILY 09/29/16 08/23/18 [Lotrel 10-20 mg Capsule] Omeprazole [PriLOSEC] 20 mg PO BID 09/29/16 08/23/18 Albuterol Sulfate [Ventolin Hfa] 2 puff IH Q6H PRN 08/06/18 08/23/18 Fluticasone/Vilanterol [Breo 1 puff IH DAILY 08/06/18 08/23/18 Ellipta 100-25 Mcg INH] Paroxetine [Paxil] 20 mg PO DAILY 08/06/18 08/06/18 hydrOXYzine pamoate [HydrOXYzine 25 - 50 mg PO Q6H PRN 08/06/18 08/06/18 Pamoate] Carvedilol [Coreg] 25 mg PO BID 08/23/18 Metoprolol [Lopressor] 25 mg PO BID 08/23/18 Previous Rx's Medication Instructions Recorded Folic Acid 1 mg PO DAILY #30 tablet 08/09/18 Thiamine (B-1) [Vitamin B-1] 100 mg PO DAILY #30 tablet 08/09/18 hydroCHLOROthiazide 25 mg PO DAILY #30 tablet 08/09/18 [Hydrochlorothiazide] Allergies Allergy/AdvReac Type Severity Reaction Status Date / Time No Known Allergies Allergy Verified 09/23/16 14:46 All systems ED: reviewed and negative except as stated. Cardiovascular: Denies: chest pain Respiratory: Denies: dyspnea Gastrointestinal: Denies: abdominal pain, nausea, vomiting Musculoskeletal: Denies: back pain, neck pain Neurological: Denies: headache Past Medical History - Past Medical History Attestation: Yes The following information was validated with the patient. Source: old records reviewed Medical history: Reports: arthritis, COPD, GERD, hyperlipidemia, hypertension, liver disease, seizures, syncope, other Surgical history: Reports: other Psychiatric history: Reports: anxiety, panic disorder - Social History Smoking Status: Current every day smoker Smokeless Tobacco Status: No Alcohol use: Reports: heavy Drug use: Reports: methamphetamine Physical Exam - General Limitations: altered mental status General appearance: alert, in no apparent distress - Head Head exam: atraumatic, normocephalic - Eye Eye exam: Present: normal appearance - ENT ENT exam: normal exam - Neck Neck exam: Present: normal inspection - Chest Chest inspection: Present: normal inspection, symmetric chest wall rise - Respiratory Respiratory exam: Present: normal lung sounds bilaterally - Cardiovascular Cardiovascular exam: Present: regular rate, normal rhythm, normal heart sounds - Abdominal Exam Abdominal exam: Present: soft, Non-Tender. Absent: tenderness, distention, rigidity - Extremities Exam Extremities exam: Present: normal inspection, full ROM - Expanded Upper Extremity Exam Shoulder exam: Present: normal inspection, full ROM Arm exam: Present: normal inspection, full ROM Elbow exam: Present: normal inspection, full ROM Forearm/Wrist exam: Present: normal inspection, full ROM Hand exam: Present: normal inspection, full ROM - Expanded Lower Extremity Exam Hip/Pelvis exam: Present: normal inspection, full ROM Upper leg exam: Present: normal inspection, full ROM Knee exam: Present: normal inspection, full ROM Lower leg exam: Present: normal inspection, full ROM Ankle exam: Present: normal inspection, full ROM Foot/toe exam: Present: normal inspection, full ROM - Neurological Exam Neurological exam: Present: alert, other (Alert and oriented 2. No focal deficits.) - Skin Skin exam: Present: warm, dry Course Course Narrative: Patient seen and examined. Vital signs reviewed. Plan for CT imaging head, gallbladder ultrasound for jaundice, labs, urinalysis, admission for altered mental status. Suspect hepatic encephalopathy. - Reevaluation(s) Reevaluation #1: Imaging labs reviewed. Concern for fulminant liver failure. A discussion was had with the sister who is next of kin. An offer was made to transfer the patient for hepatology consultation versus admission here which would be for palliative care and comfort care. The patient's sister was comfortable with admitting here understanding that it would be comfort care. Vital Signs Temperature 97.8 F 08/23/18 19:59 Pulse Rate 72 08/23/18 19:59 Respiratory Rate 15 08/23/18 19:59 Blood Pressure 154/84 08/23/18 19:59 O2 Sat by Pulse Oximetry 99 08/23/18 19:59 Temperature 97.8 F 08/24/18 05:04 Pulse Rate 64 08/24/18 05:04 Respiratory Rate 17 08/24/18 05:04 Blood Pressure 156/94 08/24/18 05:04 O2 Sat by Pulse Oximetry 98 08/24/18 05:04 Oxygen Delivery Oxygen Delivery Room Air Altered Mental Status - MDM Narrative Medical decision making narrative: 58-year-old male with an underlying history of hepatitis and cirrhosis presenting with altered mental status. Labs demonstrate fulminant liver failure. Suspect hepatic encephalopathy for which she was given lactulose. He is hemodynamically stable here. Discussion with the next of kin as the patient is unable to make medical decisions at this time. She was comfortable with the patient being admitted here under the terms that he would be provided with comfort care and hospice. Off for was made to transfer the patient to [place] for evaluation. The patient is admitted here to the hospitalist service for further management. - Lab Data Lab results reviewed: Yes I reviewed the patient's lab results. Result diagrams: 08/23/18 20:09 08/23/18 20:09 Lab Results 08/23/18 08/23/18 08/23/18 Range/Units 20:09 20:09 20:09 WBC 7.1 D (4.3-11.1) K/mcL RBC 3.44 L (4.19-5.50) M/mcL Hgb 11.7 L D (12.9-16.9) g/dL Hct 32.3 L (37.5-50.1) % MCV 93.9 (83.0-100.0) fL MCH 34.0 H (28.0-33.3) pg MCHC 36.2 H (31.6-35.5) g/dL RDW 16.6 H (11.5-14.5) % Plt Count 141 (140-400) K/mcL MPV 10.6 (9.4-12.4) fL Immature Gran % 0.7 (0-4) % Seg Neutrophils % 75.3 % Lymphocytes % 15.5 % Monocytes % 7.6 % Eosinophils % 0.6 % Basophils % 0.3 % Neutrophils # 5.4 (1.6-8.9) K/mcL Lymphocytes # 1.1 (0.6-4.6) K/mcL Monocytes # 0.5 (0.0-1.3) K/mcL Eosinophils # 0.0 (0.0-0.6) K/mcL Basophils # 0.0 (0.0-0.2) K/mcL PT 40.1 H D (9.4-12.1) Seconds INR 3.6 D Sodium 125 L (136-145) mEq/L Potassium 4.2 (3.5-5.1) mEq/L Chloride 97 L (98-107) mEq/L Carbon Dioxide 19 L (23-29) mEq/L BUN 14 (6-20) mg/dL Creatinine 0.94 (0.70-1.30) mg/dL Est GFR ( Amer) > 60 (> 60) Est GFR (Non-Af Amer) > 60 (> 60) BUN/Creatinine Ratio 15 (6-26) Glucose 78 (70-105) mg/dL Calculated Osmolality 259 L (280-300) Calcium 8.7 (8.6-10.3) mg/dL Total Bilirubin 14.6 H (0.3-1.0) mg/dL Direct Bilirubin 9.3 H (0.0-0.2) mg/dL Indirect Bilirubin 5.3 H (0.0-1.2) mg/dL AST > 3000 H (13-39) Units/L ALT > 500 H (7-52) Units/L Alkaline Phosphatase 233 H (34-104) Units/L Ammonia (16-53) mcmol/L Serum Total Protein 7.9 (6.4-8.9) g/dL Albumin 2.2 L (3.5-5.7) g/dL Globulin 5.7 H (2.4-3.5) g/dL Albumin/Globulin Ratio 0.4 L (1.1-2.2) Urine Color (Yellow) Urine Clarity (Clear) Urine pH (5.0-8.0) pH Units Ur Specific [place] (1.010-1.025) Urine Protein (Neg-Trace) mg/dL Urine Glucose (UA) (Normal) mg/dL Urine Ketones (Negative) mg/dL Urine Blood (Negative) Urine Nitrite (Negative) Urine Bilirubin (Negative) Urine Urobilinogen (Normal) mg/dL Ur Leukocyte Esterase (Negative) Urine Microscopic RBC (0-3) per hpf Urine Microscopic WBC (0-3) per hpf Ur Squamous Epith Cells (None-Few) per lpf Urine Bacteria (None-Few) per hpf Hyaline Casts (None-Few) per lpf Ur Culture Indicated? (NO) Urine Opiates Screen (Xohcda=336) ng/mL Ur Barbiturates Screen (Dvllgg=861) ng/mL Ur Phencyclidine Scrn (Cutoff=25) ng/mL Ur Amphetamines Screen (Vmxbgj=4085) ng/mL U Benzodiazepines Scrn (Qajbnc=808) ng/mL Urine Cocaine Screen (Cutoff= 300) ng/mL U Marijuana (THC) Screen (Cutoff = 50) ng/mL Ur Drug Screen Interp Ethyl Alcohol 12 H (Less than 10) mg/dL Hepatitis A IgM Ab (Nonreactive) Hep Bs Antigen (Nonreactive) Hep B Core IgM Ab (Nonreactive) Hepatitis C Ab Screen (Nonreactive) 08/23/18 08/23/18 08/23/18 Range/Units 20:10 20:50 22:06 WBC (4.3-11.1) K/mcL RBC (4.19-5.50) M/mcL Hgb (12.9-16.9) g/dL Hct (37.5-50.1) % MCV (83.0-100.0) fL MCH (28.0-33.3) pg MCHC (31.6-35.5) g/dL RDW (11.5-14.5) % Plt Count (140-400) K/mcL MPV (9.4-12.4) fL Immature Gran % (0-4) % Seg Neutrophils % % Lymphocytes % % Monocytes % % Eosinophils % % Basophils % % Neutrophils # (1.6-8.9) K/mcL Lymphocytes # (0.6-4.6) K/mcL Monocytes # (0.0-1.3) K/mcL Eosinophils # (0.0-0.6) K/mcL Basophils # (0.0-0.2) K/mcL PT (9.4-12.1) Seconds INR Sodium (136-145) mEq/L Potassium (3.5-5.1) mEq/L Chloride (98-107) mEq/L Carbon Dioxide (23-29) mEq/L BUN (6-20) mg/dL Creatinine (0.70-1.30) mg/dL Est GFR ( Amer) (> 60) Est GFR (Non-Af Amer) (> 60) BUN/Creatinine Ratio (6-26) Glucose (70-105) mg/dL Calculated Osmolality (280-300) Calcium (8.6-10.3) mg/dL Total Bilirubin (0.3-1.0) mg/dL Direct Bilirubin (0.0-0.2) mg/dL Indirect Bilirubin (0.0-1.2) mg/dL AST (13-39) Units/L ALT (7-52) Units/L Alkaline Phosphatase (34-104) Units/L Ammonia 115 H (16-53) mcmol/L Serum Total Protein (6.4-8.9) g/dL Albumin (3.5-5.7) g/dL Globulin (2.4-3.5) g/dL Albumin/Globulin Ratio (1.1-2.2) Urine Color [place] A (Yellow) Urine Clarity Cloudy A (Clear) Urine pH 6.0 (5.0-8.0) pH Units Ur Specific [place] 1.008 L (1.010-1.025) Urine Protein 30 H (Neg-Trace) mg/dL Urine Glucose (UA) Normal (Normal) mg/dL Urine Ketones Trace H (Negative) mg/dL Urine Blood Negative (Negative) Urine Nitrite Negative (Negative) Urine Bilirubin Large H (Negative) Urine Urobilinogen Normal (Normal) mg/dL Ur Leukocyte Esterase Negative (Negative) Urine Microscopic RBC 3-5 H (0-3) per hpf Urine Microscopic WBC 0-3 (0-3) per hpf Ur Squamous Epith Cells Few (None-Few) per lpf Urine Bacteria None Seen (None-Few) per hpf Hyaline Casts Few (None-Few) per lpf Ur Culture Indicated? NO (NO) Urine Opiates Screen (Azyxvb=459) ng/mL Ur Barbiturates Screen (Thywci=952) ng/mL Ur Phencyclidine Scrn (Cutoff=25) ng/mL Ur Amphetamines Screen (Soovvx=1504) ng/mL U Benzodiazepines Scrn (Repasw=714) ng/mL Urine Cocaine Screen (Cutoff= 300) ng/mL U Marijuana (THC) Screen (Cutoff = 50) ng/mL Ur Drug Screen Interp Ethyl Alcohol (Less than 10) mg/dL Hepatitis A IgM Ab Reactive H (Nonreactive) Hep Bs Antigen Reactive H (Nonreactive) Hep B Core IgM Ab Reactive H (Nonreactive) Hepatitis C Ab Screen Reactive H (Nonreactive) 08/23/18 Range/Units 22:06 WBC (4.3-11.1) K/mcL RBC (4.19-5.50) M/mcL Hgb (12.9-16.9) g/dL Hct (37.5-50.1) % MCV (83.0-100.0) fL MCH (28.0-33.3) pg MCHC (31.6-35.5) g/dL RDW (11.5-14.5) % Plt Count (140-400) K/mcL MPV (9.4-12.4) fL Immature Gran % (0-4) % Seg Neutrophils % % Lymphocytes % % Monocytes % % Eosinophils % % Basophils % % Neutrophils # (1.6-8.9) K/mcL Lymphocytes # (0.6-4.6) K/mcL Monocytes # (0.0-1.3) K/mcL Eosinophils # (0.0-0.6) K/mcL Basophils # (0.0-0.2) K/mcL PT (9.4-12.1) Seconds INR Sodium (136-145) mEq/L Potassium (3.5-5.1) mEq/L Chloride (98-107) mEq/L Carbon Dioxide (23-29) mEq/L BUN (6-20) mg/dL Creatinine (0.70-1.30) mg/dL Est GFR ( Amer) (> 60) Est GFR (Non-Af Amer) (> 60) BUN/Creatinine Ratio (6-26) Glucose (70-105) mg/dL Calculated Osmolality (280-300) Calcium (8.6-10.3) mg/dL Total Bilirubin (0.3-1.0) mg/dL Direct Bilirubin (0.0-0.2) mg/dL Indirect Bilirubin (0.0-1.2) mg/dL AST (13-39) Units/L ALT (7-52) Units/L Alkaline Phosphatase (34-104) Units/L Ammonia (16-53) mcmol/L Serum Total Protein (6.4-8.9) g/dL Albumin (3.5-5.7) g/dL Globulin (2.4-3.5) g/dL Albumin/Globulin Ratio (1.1-2.2) Urine Color (Yellow) Urine Clarity (Clear) Urine pH (5.0-8.0) pH Units Ur Specific [place] (1.010-1.025) Urine Protein (Neg-Trace) mg/dL Urine Glucose (UA) (Normal) mg/dL Urine Ketones (Negative) mg/dL Urine Blood (Negative) Urine Nitrite (Negative) Urine Bilirubin (Negative) Urine Urobilinogen (Normal) mg/dL Ur Leukocyte Esterase (Negative) Urine Microscopic RBC (0-3) per hpf Urine Microscopic WBC (0-3) per hpf Ur Squamous Epith Cells (None-Few) per lpf Urine Bacteria (None-Few) per hpf Hyaline Casts (None-Few) per lpf Ur Culture Indicated? (NO) Urine Opiates Screen Negative (Vqjfvj=876) ng/mL Ur Barbiturates Screen Negative (Meekid=358) ng/mL Ur Phencyclidine Scrn Negative (Cutoff=25) ng/mL Ur Amphetamines Screen Negative (Bthmom=5196) ng/mL U Benzodiazepines Scrn Negative (Ykolxb=914) ng/mL Urine Cocaine Screen Negative (Cutoff= 300) ng/mL U Marijuana (THC) Screen Negative (Cutoff = 50) ng/mL Ur Drug Screen Interp See Below Ethyl Alcohol (Less than 10) mg/dL Hepatitis A IgM Ab (Nonreactive) Hep Bs Antigen (Nonreactive) Hep B Core IgM Ab (Nonreactive) Hepatitis C Ab Screen (Nonreactive) - Radiology Data Radiology results reviewed: Yes I reviewed the patient's radiology results. Chest X-Ray 08/23/18 20:09 IMPRESSION: Negative chest. D/ / Suyapa Hoffman MD / Suyapa Hoffman MD Interpreting Provider: Suyapa Hoffman MD Head CT 08/23/18 20:09 IMPRESSION: Stable CT brain with no acute intracranial abnormality. D/ / Suyapa Hoffman MD / Suyapa Hoffman MD Interpreting Provider: Suyapa Hoffman MD Gallbladder Ultrasound 08/23/18 20:14 IMPRESSION: 1. Redemonstration of cirrhotic appearing liver with now moderate upper quadrant ascites. 2. Diffusely thickened edematous gallbladder wall which is nonspecific but may be secondary to cirrhosis. 3. Moderate layering gallbladder sludge. D/ / Suyapa Hoffman MD / Suyapa Hoffman MD Interpreting Provider: Suyapa Hoffman MD - EKG Data EKG attestation: Yes I reviewed and interpreted this EKG. EKG results narrative: EKG demonstrates sinus rhythm with a rate of 76 bpm. Left axis deviation. Normal intervals. Normal R-wave progression. No gross ST elevations or depressions. No acute ischemic findings. No significant changes from previous EKG dated 08/06/18. Critical Care Time Critical Care Time: Yes Total Critical Care Time: 33 Attestation: Acute altered mental status w/ encephalopathy S.B.A.R. - S.B.A.R. Situation: Demographics, MOA Background: Presenting Complaint, Relevant PMH, Meds, & Allergies Assessment: Course and respsone to treatment, Exam Concerns, Patient/Family Expectation, Pertinant Lab Results Recommendation: Barrier(s) to disposition, Recommendation based on pending studies, treatments, or consults S.B.A.R. Report Given to: Dr. Farias Attestation Statement - Attestation Attestation: Dr Lee note: Pt seen in conjunction w/ resident Dr Paul; please see his charting for complete documentation. I spent [id number] time with the patient and I agree with patient's treatment and disposition. Liver failure with jaundice intermittent since spring of this year. No pain at this time. Family at bedside states he is still drinking and has known then have alcoholic cirrhosis as well as hepatitis for about 6 months. Prior diagnosis and evaluation [facility]. Next of kin is his sister who is at bedside. Patient is comfortable with this time but he has poor insight and obvious poor focus due to his medical condition. Sisters is the next of kin and has been in contact with other siblings. Sister's name is Paula and requests no invasive or aggresive medical treatment due to pt's known/ prior diagnosis and now advanced condition ; I spoke at length w/ Mitchell twice and she would like supportive care and a Hospice and or Palliative Care consult at this time; She/ pt were offered a transfer back to [place] for eval and they declined this option, aware of all risks/benefits;
[2018-08-23 20:39] LABS: Hemoglobin 11.7 g/dL (12.9-16.9); Neutrophils # 5.4 K/mcL (1.6-8.9)
[2018-08-23 20:48] LABS: Prothrombin Time 40.1 Seconds (9.4-12.1)
[2018-08-23 20:49] LABS: INR 3.6
[2018-08-23 21:03] LABS: Alanine Aminotransferase > 500 Units/L (7-52); Albumin 2.2 g/dL (3.5-5.7); Albumin/Globulin Ratio 0.4 (1.1-2.2); Alkaline Phosphatase 233 Units/L (34-104); Aspartate Amino Transferase > 3000 Units/L (13-39); BUN/Creatinine Ratio 15 (6-26); Bilirubin,Direct 9.3 mg/dL (0.0-0.2); Bilirubin,Indirect 5.3 mg/dL (0.0-1.2); Bilirubin,Total 14.6 mg/dL (0.3-1.0); Blood Urea Nitrogen 14 mg/dL (6-20); Calcium 8.7 mg/dL (8.6-10.3); Carbon Dioxide 19 mEq/L (23-29); Chloride 97 mEq/L (98-107); Ethanol 12 mg/dL (Less than 10); Globulin 5.7 g/dL (2.4-3.5); Glucose 78 mg/dL (70-105); Osmolality,Calculated 259 (280-300); Potassium 4.2 mEq/L (3.5-5.1); Sodium 125 mEq/L (136-145); Total Protein 7.9 g/dL (6.4-8.9); eGFR For Non-African Americans > 60 (> 60)
[2018-08-23] MEDS ORDERED: Lactulose Oral Soln 20 GM/30 ML UDC PO ONE (21:18)
[2018-08-23 22:20] LABS: Bilirubin,Urine Large (Negative); Blood,Urine Negative (Negative); Clarity,Urine Cloudy (Clear); Color,Urine Orange (Yellow); Glucose,Urine (UA) Normal (Normal); Ketones,Urine Trace mg/dL (Negative); Leukocyte Esterase,Urine Negative (Negative); Nitrite,Urine Negative (Negative); Protein,Urine 30 mg/dL (Neg-Trace); Specific Gravity,Urine 1.008 (1.010-1.025); Urobilinogen,Urine Normal (Normal)
[2018-08-23 22:21] LABS: Bacteria,Urine None Seen per hpf (None-Few); Hyaline Casts,Urine Few per lpf (None-Few); Squamous Epithelial Cell,Urine Few per lpf (None-Few); WBC,Urine 0-3 per hpf (0-3)
[2018-08-23 22:39] LABS: Amphetamine Screen,Urine Negative ng/mL (Cutoff=1000); Barbiturate Screen,Urine Negative ng/mL (Cutoff=200); Benzodiazepines Screen,Urine Negative ng/mL (Cutoff=200); Cannabinoid Screen,Urine Negative ng/mL (Cutoff = 50); Cocaine Screen,Urine Negative ng/mL (Cutoff= 300); Opiate Screen,Urine Negative ng/mL (Cutoff=300); Phencyclidine Screen,Urine Negative ng/mL (Cutoff=25)
[2018-08-23 23:25] LABS: Hepatitis B Core IgM Reactive (Nonreactive); Hepatitis B Surface Antigen Reactive (Nonreactive); Hepatitis C Virus Antibody Reactive (Nonreactive)
[2018-08-23 23:26] LABS: Hepatitis A Antibody IgM Reactive (Nonreactive)
[2018-08-24] MEDS ORDERED: Naloxone 0.4 MG/ML INJ IVP PRN (07:37)
[2018-08-24] MEDS ORDERED: hydrOXYzine pamoate 25 MG CAPSULE PO PRN (07:40)
[2018-08-24] MEDS ORDERED: hydroCHLOROthiazide 25 MG TABLET PO SCH (09:00)
[2018-08-24] MEDS ORDERED: NON-FORMULARY MEDICATION 1 EACH EACH (Fluticasone/Vilanterol [Breo Ellipta 100-25 Mcg Inh] IH SCH (09:00)
[2018-08-24] MEDS: 0.9 % Sodium Chloride 1,000 ML IVC SCH ×2 (09:40→22:31)
[2018-08-24] MEDS: Folic Acid 1 MG TABLET PO SCH (09:41)
[2018-08-24] MEDS: Thiamine (B-1) 100 MG TABLET PO SCH (09:41)
[2018-08-24] MEDS: Budesonide/Formoterol 160/4.5 1 PUFF INH IH SCH ×2 (10:13→19:25)
--- NOTE | 2018-08-24 11:42 | Palliative - Consult Note ---
Date of Encounter: 08/24/18 Time of Encounter: 10:30 - Assessment and Plan (1) Altered mental state Current Visit: No Status: Acute Qualifiers: Altered mental status type: unspecified Qualified Code(s): R41.82 - Altered mental status, unspecified (2) Hyperammonemia Current Visit: No Status: Acute Assessment and plan: Ammonia 115; spoke with Dr. Goel regarding initiation of Lactulose on a schedule. (3) Alcoholism /alcohol abuse Current Visit: No Status: Chronic Assessment and plan: Patient is chronic alcoholic. Came in positive for alcohol and confused. Patient reports drinks approximately seven beers a day since he was 19 years old. Monitor for withdrawal from alcohol symptoms. (4) Hepatic encephalopathy Current Visit: Yes Status: Acute Assessment and plan: Continues to have altered mental status. Lactulose to be initiated. Monitor for falls. Reorient frequently. (5) Liver failure Current Visit: Yes Status: Acute Assessment and plan: AST >3000, ALT >500, Albumin 2.2, INR 3.6, Na 125, Hepatitis A, B, and C high reactive. Patient reports he has known he is liver failure for a long time; however, continues to drink. Diagnosed with Hepatic Encephalopathy this visit. Qualifiers: Liver failure chronicity: unspecified chronicity Hepatic coma status: without hepatic coma Qualified Code(s): K72.90 - Hepatic failure, unspecified without coma (6) Goals of care, counseling/discussion Current Visit: Yes Status: Acute Assessment and plan: Conducted goals of care discussion with patient, no family present at bedside. Patient expressed desires to have Mira Olivo (Sister) make decisions should he be unable to. Denies having MPOA; also, desires to not complete MPOA forms until has time to think it over. Patient confirmed desires for DNRCC, as he "knows how bad my liver is." Expressed desire to not have Mira called today, would like to see where things are tomorrow then reach out to her "when we have more answers." Patient reports he lives home alone in an apartment. Denies family care. No home health. Unsure of discharge plan. Verbalized understanding of inability to care for self due to weakness at this time. Discussed potential of rehab versus ECF with hospice care. Patient is unsure of his decision at this time. Interested in seeing if he can complete therapy while inpatient to see if something may be interested outpatient. Per record, patient has [facility] [place] which will require approval for placement. Palliative care to continue to follow to assist in discharge planning. (7) Weakness Current Visit: Yes Status: Acute Assessment and plan: Patient verbalized understanding of inability to care for self at this time. PT/ OT consult ordered for assistance in identifying appropriate discharge planning placement. Palliative-CN HPI - Data of Consult Patient: new to practice Consult date: 08/24/18 Requesting Physician: Julio Goel Primary Care Provider: PCP NONE - Consult Narrative Palliative Care/Comfort Measures: Palliative care Reason for consult: End Stage Liver Disease History of present illness: Mr. Taylor is a 58 year old male Arrived to [facility] via EMS for AMS on 2017. PMH: Arthritis, GERD, COPD, Hyperlipidemia, HTN, Liver disease, Seizures, Syncope, Anxiety, Panic Disorder, and Hepatitis. Patient had limited mentation upon arrival. Initial Chest x-ray WNL. CT of head without contrast showing: stable. Gallbladder ultrasound showing Redemonstration of cirrhotic appearing liver with now moderate upper quadrant ascites; Diffusely thickened edematous gallbladder wall which is nonspecific but may be secondary to cirrhosis; and Moderate layering gallbladder sludge. Palliative care consulted for End Stage Liver Disease. Lab review: AST >3000; ALT >500; Albumin 2.2; INR 3.6; Na 125; Positive for alcohol; Ammonia 115; Hepatitis A, B, and C reactive High. Patient also having continue alcohol consumption. Patient admitted and medically managed for Liver failure and Hepatic encephalopathy. Patient is lying in bed with eyes closed upon arrival for assessment, no family present at bedside. Patient is alert and oriented to person and place, struggles with following conversation. Patient denies pain, anxiety, dyspnea, nausea and vomiting. Patient fell asleep repetitively during assessment. Patient reports continued alcohol consumption and "that's what brought me in." Patient reports drinking approximately 7 beers a day since the age of [age] years old. Reports living home alone in an apartment; denies home health or family care. Denies having MPOA, but desires for sister Mira Olivo to make decisions should he be unable; however, needs to think about it before completing "anything legal." Patient is unsure if chronically jaundice. CC: Julio Goel - Time Spent with Patient Time: Total time spent is greater than 50% in coordination of care (as documented) at patient's floor/unit and/or counseling patient: 25 - 35 minutes Past Med Surg Social Fam HX - Past Medical History Medical history: arthritis, COPD, GERD, hyperlipidemia, hypertension, liver disease, seizures, syncope, other Psychiatric history: anxiety, panic disorder - Past Surgical History Surgical History: other Additional surgical history: eye surgery - Social History Smoking Status: Current every day smoker Smokeless Tobacco Status: No Alcohol use: heavy Drug use: methamphetamine Medications and Allergies Amlodipine Besylate/Benazepril [Lotrel 10-20 mg Capsule] 1 each PO DAILY [History] Omeprazole [PriLOSEC] 20 mg PO BID 09/29/16 [History] Albuterol Sulfate [Ventolin Hfa] 2 puff IH Q6H PRN 08/06/18 [History] Fluticasone/Vilanterol [Breo Ellipta 100-25 Mcg INH] 1 puff IH DAILY 08/06/18 [ History] Paroxetine [Paxil] 20 mg PO DAILY 08/06/18 [History] hydrOXYzine pamoate [HydrOXYzine Pamoate] 25 - 50 mg PO Q6H PRN 08/06/18 [ History] Folic Acid 1 mg PO DAILY #30 tablet 08/09/18 [Rx] Thiamine (B-1) [Vitamin B-1] 100 mg PO DAILY #30 tablet 08/09/18 [Rx] hydroCHLOROthiazide [Hydrochlorothiazide] 25 mg PO DAILY #30 tablet 08/09/18 [Rx ] Carvedilol [Coreg] 25 mg PO BID 08/23/18 [History] 3 Allergy/AdvReac Type Severity Reaction Status Date / Time No Known Allergies Allergy Verified 09/23/16 14:46 ROS unobtainable: due to mental status - Constitutional Constitutional ROS PAL: fatigue, lethargy - Cardiovascular Cardiovascular ROS: no chest pain, no leg edema - Respiratory Respiratory: no dyspnea - Gastrointestinal Gastrointestinal: no abdominal pain, no change in stool character, no constipation, no nausea, no vomiting - Genitourinary Genitourinary ROS male: no difficulty urinating - Musculoskeletal Musculoskeletal ROS IM: no myalgias - Integumentary ROS Integumentary: jaundice - Neurological Neurological ROS: abnormal speech, dizziness, weakness - Psychiatric Psychiatric general PM: difficulty concentrating, no anxiety Palliative Care-Exam - Constitutional Vitals: Temp Pulse Resp BP Pulse Ox 98.5 F 69 16 150/94 94 08/24/18 11:34 08/24/18 11:34 08/24/18 11:34 08/24/18 11:34 08/24/18 11:34 General appearance: Present: disheveled - Head Head Exam: Present: atraumatic, normal inspection - Eye Eye exam: Absent: normal appearance (Jaundice), periorbital swelling, periorbital tenderness Pupils: Present: normal accommodation - ENT ENT exam: Present: mucous membranes dry - Neck Neck exam: Present: full ROM, normal inspection - Respiratory Respiratory exam: Present: CTAB. Absent: accessory muscle use, respiratory distress - Cardiovascular Cardiovascular exam: Present: +S1, +S2 - Expanded Cardiovascular Exam Peripheral pulses: 2+: Radial (L), Radial (R), Posterior Tibialis (L), Posterior Tibialis (R), Dorsalis Pedis (L) PM, Dorsalis Pedis (R) PM - GI/Abdominal Exam GI/Abdominal exam: Present: diminished bowel sounds, soft. Absent: tenderness - Expanded GI/Abdominal Exam GI/Abdominal exam: Present: ascites - Rectal Rectal Exam: Present: deferred - Extremities Exam Extremities exam: Present: full ROM, normal inspection. Absent: calf tenderness , pedal edema - Neurological Exam Neurological exam: Present: alert, altered, strengths equal and symetr throughout. Absent: oriented X3 - Expanded Neurological Exam Neurological exam expanded: Present: inattentive Patient oriented to: Present: person, place. Absent: time Coma Scale Eye Opening: To Voice Coma Scale Motor Response: Obeys Commands Coma Scale Verbal Response: Confused Coma Scale Total: 13 - Psychiatric Psychiatric exam: Present: flat affect - Skin Skin exam: Present: dry, warm. Absent: normal color (Jaundice) Internal Medicine - CN: Reslt - Labs CBC & Chem 7: 08/23/18 20:09 08/23/18 20:09 - ABG Interpretation ABG results: PT/INR, D-dimer PT 40.1 Seconds (9.4-12.1) H D 08/23/18 20:09 Consult Discharge Plan - Plan Referrals: NONE,PCP [Primary Care Provider] - Palliative Quality Palliative Quality: Screen for Code Status: Yes, Screen for Goals of Care: Yes, Screen for Pain: Yes, If Pain Regimen Started, Initiate Bowel Regimen: NA, Screen for Nausea/Vomitting: Yes Code Status: 08/24/18 07:37 Resuscitation Status: Active [RES] Routine Comment: Resuscitation Status: DNR-Comfort Care
[2018-08-24] MEDS ORDERED: Lisinopril 20 MG TABLET PO SCH ×2 (12:00→12:07)
[2018-08-24] MEDS: amLODIPine 5 MG TABLET PO SCH (12:39)
[2018-08-24] MEDS: Lactulose Oral Soln 20 GM/30 ML UDC PO SCH ×2 (15:04→22:26)
--- NOTE | 2018-08-24 15:16 | Internal Med History&Physical ---
Date of Encounter: 08/24/18 Time of Encounter: 11:00 Internal Medicine - H&P: HPI Chief complaint: After mental status Admitted From: Home Plans for Post Hospital Care: Transfer Residential Care History of present illness: Patient is a 58-year-old male with past medical history significant for alcohol dependence/abuse, hypertension, mood disorder and GERD who presents to the ER on 08/24/18 due to altered mental status. Patient not able to give much history due to altered mental status and family members not present at the bedside. In the ER, patient was found to have an ammonia level of 115, alk phosphatase 233, ALT greater than 500, AST greater than 3000, indirect bilirubin 5.3, direct bilirubin 9.3 and total bilirubin of 14.6. Per EMR documentation, ER physician discussed with family about transferred to a facility where public information coordinator available but family declined and agreed the patient will be palliative care only here at [facility] was a DNR CCA. Palliative services was consulted from ER. Patient was given 1 dose of lactulose in the ER and will be admitted to the medical surgical floor for palliative care. Past Med Surg Social Fam HX - Past Medical History Medical history: arthritis, COPD, GERD, hyperlipidemia, hypertension, liver disease, seizures, syncope, other Psychiatric history: anxiety, panic disorder - Past Surgical History Surgical History: other Additional surgical history: eye surgery - Social History Smoking Status: Current every day smoker Smokeless Tobacco Status: No Alcohol use: heavy Drug use: methamphetamine Internal Medicine - H&P: Meds Amlodipine Besylate/Benazepril [Lotrel 10-20 mg Capsule] 1 each PO DAILY [History] Omeprazole [PriLOSEC] 20 mg PO BID 09/29/16 [History] Albuterol Sulfate [Ventolin Hfa] 2 puff IH Q6H PRN 08/06/18 [History] Fluticasone/Vilanterol [Breo Ellipta 100-25 Mcg INH] 1 puff IH DAILY 08/06/18 [ History] Paroxetine [Paxil] 20 mg PO DAILY 08/06/18 [History] hydrOXYzine pamoate [HydrOXYzine Pamoate] 25 - 50 mg PO Q6H PRN 08/06/18 [ History] Folic Acid 1 mg PO DAILY #30 tablet 08/09/18 [Rx] Thiamine (B-1) [Vitamin B-1] 100 mg PO DAILY #30 tablet 08/09/18 [Rx] hydroCHLOROthiazide [Hydrochlorothiazide] 25 mg PO DAILY #30 tablet 08/09/18 [Rx ] Carvedilol [Coreg] 25 mg PO BID 08/23/18 [History] 3 Allergy/AdvReac Type Severity Reaction Status Date / Time No Known Allergies Allergy Verified 09/23/16 14:46 ROS unobtainable: due to mental status All Systems PM: A 10-system review of systems was performed and is negative for pertinent findings except as documented above in the HPI. - Constitutional Vitals: Temp Pulse Resp BP Pulse Ox 98.5 F 69 16 150/94 94 08/24/18 11:34 08/24/18 11:34 08/24/18 11:34 08/24/18 11:34 08/24/18 11:34 General appearance: Present: A&O X 2 Exam: As below - Eye Eye exam: Present: scleral icterus - Respiratory Respiratory exam: Present: CTAB. Absent: accessory muscle use, rales, rhonchi, wheezes - Cardiovascular Cardiovascular exam: Present: RRR, +S1, +S2. Absent: diastolic murmur, gallop, rubs, systolic murmur - GI/Abdominal GI/Abdominal exam: Present: distended - Skin Skin exam: Absent: normal color (Jaundice) Internal Med - H&P Results - Labs CBC & Chem 7: 08/23/18 20:09 08/23/18 20:09 - Assessment and plan (1) Hepatic encephalopathy Current Visit: Yes Status: Acute Assessment and plan: Patient with altered mental status secondary to hepatic encephalopathy due to liver failure with elevated ammonia levels. Will continue scheduled lactulose and monitor. (2) Liver failure Current Visit: Yes Status: Acute Assessment and plan: In the ER, patient was found to have an ammonia level of 115, alk phosphatase 233, ALT greater than 500, AST greater than 3000, indirect bilirubin 5.3, direct bilirubin 9.3 and total bilirubin of 14.6. Ammonia levels 116 and INR 3.6 Patient with abdominal distention and scleral icterus/jaundice on exam Per EMR documentation, ER physician discussed with family about transferred to a facility where public information coordinator available but family declined and agreed the patient will be palliative care only here at [facility] was a DNR CCA. Palliative services was consulted with recommendations for ECF with hospice Qualifiers: Liver failure chronicity: unspecified chronicity Hepatic coma status: without hepatic coma Qualified Code(s): K72.90 - Hepatic failure, unspecified without coma (3) Alcohol abuse with alcohol-induced disorder Current Visit: No Status: Acute Assessment and plan: Will cover patient with CIWA protocol (4) Hyperammonemia Current Visit: No Status: Acute Assessment and plan: Ammonia level 115 on admission and repeat level 116 Continue scheduled lactulose (5) Hyponatremia Current Visit: No Status: Acute Assessment and plan: Suspect secondary to chronic alcohol consumption/dependency Sodium 125 Fluid restrict in addition to giving gentle normal saline (6) GERD (gastroesophageal reflux disease) Current Visit: No Status: Chronic Assessment and plan: Continue home dose of PPI Qualifiers: Esophagitis presence: esophagitis presence not specified Qualified Code(s) : K21.9 - Gastro-esophageal reflux disease without esophagitis (7) Hepatitis C Current Visit: No Status: Chronic Assessment and plan: Patient with history of hepatitis Qualifiers: Viral hepatitis chronicity: unspecified Hepatic coma status: without hepatic coma Qualified Code(s): B19.20 - Unspecified viral hepatitis C without hepatic coma (8) Goals of care, counseling/discussion Current Visit: Yes Status: Acute Assessment and plan: Palliative care consulted with recommendations for placement at ECF with hospice (9) DVT prophylaxis Current Visit: No Status: Acute Assessment and plan: Subcutaneous heparin - Time Spent With Patient Total time spent is greater than 50% in coordination of care (as documented) at patient's floor/unit and/or counseling patient:
[2018-08-24] MEDS ORDERED: *HR* LORazepam 2 MG/ML VIAL IVP PRN (15:29)
[2018-08-24] MEDS: *HR* Heparin 5,000 UNIT/ML VIAL SQ SCH (22:28)
[2018-08-25 05:39] LABS: Basophils % 0.2 %; Eosinophils # 0.1 K/mcL (0.0-0.6); Eosinophils % 0.9 %; Hematocrit 25.2 % (37.5-50.1); Hemoglobin 9.2 g/dL (12.9-16.9); Immature Granulocytes % 0.3 % (0-4); Immature Platelets 4.3 % (1.1-6.1); Lymphocytes # 1.2 K/mcL (0.6-4.6); Lymphocytes % 20.1 %; Mean Corpuscular HGB Conc 36.5 g/dL (31.6-35.5); Mean Corpuscular Hemoglobin 33.8 pg (28.0-33.3); Mean Corpuscular Volume 92.6 fL (83.0-100.0); Mean Platelet Volume 10.7 fL (9.4-12.4); Monocytes # 0.5 K/mcL (0.0-1.3); Monocytes % 8.9 %; Platelet Count 107 K/mcL (140-400); Red Blood Count 2.72 M/mcL (4.19-5.50); Red Cell Distribution Width 16.7 % (11.5-14.5); Segmented Neutrophils % 69.6 %
[2018-08-25 06:10] LABS: Alanine Aminotransferase > 500 Units/L (7-52); Albumin 1.8 g/dL (3.5-5.7); Albumin/Globulin Ratio 0.4 (1.1-2.2); Alkaline Phosphatase 176 Units/L (34-104); Aspartate Amino Transferase > 3000 Units/L (13-39); BUN/Creatinine Ratio 15 (6-26); Bilirubin,Total 14.1 mg/dL (0.3-1.0); Blood Urea Nitrogen 27 mg/dL (6-20); Calcium 8.3 mg/dL (8.6-10.3); Carbon Dioxide 19 mEq/L (23-29); Chloride 108 mEq/L (98-107); Globulin 4.7 g/dL (2.4-3.5); Glucose 101 mg/dL (70-105); Osmolality,Calculated 279 (280-300); Potassium 3.9 mEq/L (3.5-5.1); Sodium 132 mEq/L (136-145); Total Protein 6.5 g/dL (6.4-8.9); eGFR For Non-African Americans 40 (> 60)
[2018-08-25] MEDS: *HR* Heparin 5,000 UNIT/ML VIAL SQ SCH ×3 (06:14→22:24)
[2018-08-25 07:03] LABS: Platelet Estimate Slight Decrease (Normal)
[2018-08-25] MEDS: Budesonide/Formoterol 160/4.5 1 PUFF INH IH SCH ×2 (07:41→20:25)
[2018-08-25] MEDS ORDERED: *HR* LORazepam 2 MG/ML VIAL IVP PRN ×2 (07:55)
[2018-08-25] MEDS: Thiamine (B-1) 100 MG TABLET PO SCH (10:29)
[2018-08-25] MEDS: Folic Acid 1 MG TABLET PO SCH (10:29)
[2018-08-25] MEDS: Lactulose Oral Soln 20 GM/30 ML UDC PO SCH ×3 (10:30→22:32)
[2018-08-25] MEDS: amLODIPine 5 MG TABLET PO SCH (10:30)
--- NOTE | 2018-08-25 11:23 | Palliative Progress Note ---
Date of Encounter: 08/25/18 Time of Encounter: 11:00 - Assessment and plan (1) Altered mental state Current Visit: No Status: Acute Assessment and plan: Patient continues to be altered. Continue monitoring for alcohol withdrawal. CINC protocol in place. Qualifiers: Altered mental status type: unspecified Qualified Code(s): R41.82 - Altered mental status, unspecified (2) Hyperammonemia Current Visit: No Status: Acute Assessment and plan: Lactulose has been ordered. Ammonia decreased to 71. (3) Alcoholism /alcohol abuse Current Visit: No Status: Chronic Assessment and plan: CIWA protocol in place. (4) Hepatic encephalopathy Current Visit: Yes Status: Acute (5) Liver failure Current Visit: Yes Status: Acute Qualifiers: Liver failure chronicity: unspecified chronicity Hepatic coma status: without hepatic coma Qualified Code(s): K72.90 - Hepatic failure, unspecified without coma (6) Goals of care, counseling/discussion Current Visit: Yes Status: Acute Assessment and plan: Spoke with patient regarding goals of care. Desires decisions to be made by Mira. Spoke with Ottoniel regarding ECF placement, awaiting approval from [facility] pending evaluation from Insurance. Palliative care will wait to call Mira regarding hospice criteria and availability of services until insurance evaluation is complete to deter confusion that may result. Patient may have to go to ECF as a skilled patient pending insurance coverage. Ottoniel to call this bond writer back once return call from Anita regarding insurance approval. Will still educate availability of services from hospice once in LTC of ECF. (7) Weakness Current Visit: Yes Status: Acute Assessment and plan: OT recommend ECF/SNF placement at discharge. - Time Spent With Patient Total time spent is greater than 50% in coordination of care (as documented) at patient's floor/unit and/or counseling patient: - Subjective Interval history: Patient sitting up at bedside. Patient alert to person and place, no family present at bedside. Patient is confused and requires multiple reorientations for conversation. Denies pain, anxiety, dyspnea, nausea and vomiting. Abdomen noted to be filling, ascites present. Chair alarm in place. Patient denies needs at this time. Patient approved for discharge planning decisions to be made by Mira Ahumada, per SW note and conversation with Ottoniel agreeable to [facility] or [facility] [place]; however, awaiting insurance evaluation by Anita at this time. - Constitutional Vitals: Abnormal lab results RBC 2.72 M/mcL (4.19-5.50) L 08/25/18 05:17 Hgb 9.2 g/dL (12.9-16.9) L D 08/25/18 05:17 Hct 25.2 % (37.5-50.1) L 08/25/18 05:17 MCH 33.8 pg (28.0-33.3) H 08/25/18 05:17 MCHC 36.5 g/dL (31.6-35.5) H 08/25/18 05:17 RDW 16.7 % (11.5-14.5) H 08/25/18 05:17 Plt Count 107 K/mcL (140-400) L 08/25/18 05:17 Platelet Estimate Slight Decrease (Normal) L 08/25/18 05:17 PT 40.1 Seconds (9.4-12.1) H D 08/23/18 20:09 Sodium 132 mEq/L (136-145) L 08/25/18 05:17 Chloride 108 mEq/L (98-107) H 08/25/18 05:17 Carbon Dioxide 19 mEq/L (23-29) L 08/25/18 05:17 BUN 27 mg/dL (6-20) H 08/25/18 05:17 Creatinine 1.77 mg/dL (0.70-1.30) H 08/25/18 05:17 Est GFR ( Amer) 48 (> 60) L 08/25/18 05:17 Est GFR (Non-Af Amer) 40 (> 60) L 08/25/18 05:17 Calculated Osmolality 279 (280-300) L 08/25/18 05:17 Calcium 8.3 mg/dL (8.6-10.3) L 08/25/18 05:17 Total Bilirubin 14.1 mg/dL (0.3-1.0) H 08/25/18 05:17 Direct Bilirubin 9.3 mg/dL (0.0-0.2) H 08/23/18 20:09 Indirect Bilirubin 5.3 mg/dL (0.0-1.2) H 08/23/18 20:09 AST > 3000 Units/L (13-39) H 08/25/18 05:17 ALT > 500 Units/L (7-52) H 08/25/18 05:17 Alkaline Phosphatase 176 Units/L (34-104) H 08/25/18 05:17 Ammonia 116 mcmol/L (16-53) H 08/24/18 13:03 Albumin 1.8 g/dL (3.5-5.7) L 08/25/18 05:17 Globulin 4.7 g/dL (2.4-3.5) H 08/25/18 05:17 Albumin/Globulin Ratio 0.4 (1.1-2.2) L 08/25/18 05:17 Urine Color [place] (Yellow) A 08/23/18 22:06 Urine Clarity Cloudy (Clear) A 08/23/18 22:06 Ur Specific [place] 1.008 (1.010-1.025) L 08/23/18 22:06 Urine Protein 30 mg/dL (Neg-Trace) H 08/23/18 22:06 Urine Ketones Trace mg/dL (Negative) H 08/23/18 22:06 Urine Bilirubin Large (Negative) H 08/23/18 22:06 Urine Microscopic RBC 3-5 per hpf (0-3) H 08/23/18 22:06 Ethyl Alcohol 12 mg/dL (Less than 10) H 08/23/18 20:09 Hepatitis A IgM Ab Reactive (Nonreactive) H 08/23/18 20:10 Hep Bs Antigen Reactive (Nonreactive) H 08/23/18 20:10 Hep B Core IgM Ab Reactive (Nonreactive) H 08/23/18 20:10 Hepatitis C Ab Screen Reactive (Nonreactive) H 08/23/18 20:10 General appearance: Present: cooperative, no acute distress - Head Head exam: Present: atraumatic, normal inspection - Eye Eye exam: Present: PERRL. Absent: normal appearance (Jaundices sclera), periorbital swelling, periorbital tenderness Pupils: Present: normal accommodation, PERRL - ENT ENT exam: Present: mucous membranes dry, normal external ear exam - Neck Neck exam: Present: full ROM, normal inspection - Respiratory Respiratory exam: Present: accessory muscle use, wheezes. Absent: respiratory distress - Cardiovascular Cardiovascular exam: Present: +S1, +S2 - GI/Abdominal GI/Abdominal exam: Present: distended, normal bowel sounds, soft. Absent: firm , guarding, tenderness - Rectal Rectal exam: Present: deferred - Extremities Exam Extremities exam: Present: full ROM, normal capillary refill, normal inspection. Absent: calf tenderness, pedal edema - Back Exam Back exam: Present: full ROM, normal inspection - Neurological Exam Neurological exam: Present: alert, altered, strengths equal and symetr throughout. Absent: oriented X3 - Psychiatric Psychiatric exam: Present: flat affect - Skin Skin exam: Absent: normal color (Jaundiced) Palliative Quality Palliative Quality: Screen for Code Status: Yes, Screen for Goals of Care: Yes, Screen for Pain: Yes, If Pain Regimen Started, Initiate Bowel Regimen: NA, Screen for Nausea/Vomitting: Yes Code Status: 08/24/18 07:37 Resuscitation Status: Active [RES] Routine Comment: Resuscitation Status: DNR-Comfort Care - Labs CBC & Chem 7: 08/25/18 05:17 08/25/18 05:17 Labs: Laboratory Results - last 24 hr 08/24/18 08/25/18 08/25/18 13:03 05:17 05:17 WBC 5.7 RBC 2.72 L Hgb 9.2 L D Hct 25.2 L MCV 92.6 MCH 33.8 H MCHC 36.5 H RDW 16.7 H Plt Count 107 L MPV 10.7 Immature Gran % 0.3 Seg Neutrophils % 69.6 Lymphocytes % 20.1 Monocytes % 8.9 Eosinophils % 0.9 Basophils % 0.2 Neutrophils # 4.0 Lymphocytes # 1.2 Monocytes # 0.5 Eosinophils # 0.1 Basophils # 0.0 Platelet Estimate Slight Decrease L Immature Plt Fraction 4.3 Sodium 132 L Potassium 3.9 Chloride 108 H Carbon Dioxide 19 L BUN 27 H Creatinine 1.77 H Est GFR ( Amer) 48 L Est GFR (Non-Af Amer) 40 L BUN/Creatinine Ratio 15 Glucose 101 Calculated Osmolality 279 L Calcium 8.3 L Total Bilirubin 14.1 H AST > 3000 H ALT > 500 H Alkaline Phosphatase 176 H Ammonia 116 H Serum Total Protein 6.5 Albumin 1.8 L Globulin 4.7 H Albumin/Globulin Ratio 0.4 L - ABG Interpretation ABG results: PT/INR, D-dimer PT 40.1 Seconds (9.4-12.1) H D 08/23/18 20:09 Consult Discharge Plan - Plan Referrals: NONE,PCP [Primary Care Provider] -
--- NOTE | 2018-08-25 20:57 | Internal Med Progress Note ---
Hospitalist Progress Note - Encounter Date of Encounter: 08/25/18 Time of Encounter: 11:00 - Subjective Interval History: Patient with no change in mental status this morning as he continues to be altered and confused secondary to hepatic encephalopathy due to liver failure with long history of alcohol abuse. Patient on lactulose to improve ammonia levels for mentation Made clear to family that patient was admitted here at [facility] for palliative care and awaiting placement to the ECF. - Exam Vitals: Temp Pulse Resp BP Pulse Ox 98.1 F 66 12 96/59 94 08/25/18 20:10 08/25/18 20:10 08/25/18 20:28 08/25/18 20:10 08/25/18 20:28 Exam: Gen.: Nonacute distress, alert and oriented 2 ENT: Sclera icterus Respiratory: Lungs are clear to auscultation bilaterally without any wheezing rhonchi or rales Cardiovascular: Normal S1 and S2 regular rate rhythm no murmurs rubs or gallops Abdomen: Soft but distended Extremities: No lower extremity edema Skin: Jaundice - Assessment and Plan (1) Hepatic encephalopathy Current Visit: Yes Status: Acute Assessment and Plan: Patient with no change in mental status this morning as he continues to be altered and confused secondary to hepatic encephalopathy due to liver failure with long history of alcohol abuse. Patient on lactulose to improve ammonia levels for mentation Made clear to family that patient was admitted here at [facility] for palliative care and awaiting placement to the ECF. (2) Liver failure Current Visit: Yes Status: Acute Assessment and Plan: Per EMR documentation, ER physician discussed with family about transferred to a facility where combine mechanic available but family declined and agreed the patient will be palliative care only here at [facility] was a DNR CCA. Palliative services was consulted with recommendations for ECF with hospice (3) Alcohol abuse with alcohol-induced disorder Current Visit: No Status: Acute Assessment and Plan: Will cover patient with CIWA protocol (4) Hyperammonemia Current Visit: No Status: Acute Assessment and Plan: Continue scheduled lactulose (5) Hyponatremia Current Visit: No Status: Acute Assessment and Plan: Suspect secondary to chronic alcohol consumption/dependency Fluid restrict in addition to giving gentle normal saline (6) GERD (gastroesophageal reflux disease) Current Visit: No Status: Chronic Assessment and Plan: Continue home dose of PPI (7) Hepatitis C Current Visit: No Status: Chronic Assessment and Plan: Patient with history of hepatitis (8) Goals of care, counseling/discussion Current Visit: Yes Status: Acute Assessment and Plan: Palliative care consulted with recommendations for placement at ECF with hospice (9) DVT prophylaxis Current Visit: No Status: Acute Assessment and Plan: SCDs - Time Spent with Patient Total time spent is greater than 50% in coordination of care (as documented) at patient's floor/unit and/or counseling patient: Internal Medicine: Result - Labs CBC & Chem 7: 08/25/18 05:17 08/25/18 05:17 Labs: Short CBC 08/25/18 Range/Units 05:17 WBC 5.7 (4.3-11.1) K/mcL Hgb 9.2 L D (12.9-16.9) g/dL Hct 25.2 L (37.5-50.1) % Plt Count 107 L (140-400) K/mcL Neutrophils # 4.0 (1.6-8.9) K/mcL BMP 08/25/18 05:17 Sodium 132 L Potassium 3.9 Chloride 108 H Carbon Dioxide 19 L BUN 27 H Creatinine 1.77 H Glucose 101 Calcium 8.3 L Liver Function 08/25/18 Range/Units 05:17 Total Bilirubin 14.1 H (0.3-1.0) mg/dL AST > 3000 H (13-39) Units/L ALT > 500 H (7-52) Units/L Alkaline Phosphatase 176 H (34-104) Units/L Albumin 1.8 L (3.5-5.7) g/dL - ABG Interpretation ABG results: PT/INR, D-dimer PT 40.1 Seconds (9.4-12.1) H D 08/23/18 20:09 Consult Discharge Plan - Plan Referrals: NONE,PCP [Primary Care Provider] - (2) Liver failure Qualifiers: Liver failure chronicity: unspecified chronicity Hepatic coma status: without hepatic coma Qualified Code(s): K72.90 - Hepatic failure, unspecified without coma (6) GERD (gastroesophageal reflux disease) Qualifiers: Esophagitis presence: esophagitis presence not specified Qualified Code(s): K21.9 - Gastro-esophageal reflux disease without esophagitis (7) Hepatitis C Qualifiers: Viral hepatitis chronicity: unspecified Hepatic coma status: without hepatic coma Qualified Code(s): B19.20 - Unspecified viral hepatitis C without hepatic coma
[2018-08-26] MEDS: *HR* Heparin 5,000 UNIT/ML VIAL SQ SCH ×3 (05:40→20:55)
[2018-08-26] MEDS: Lactulose Oral Soln 20 GM/30 ML UDC PO SCH ×3 (08:19→20:54)
[2018-08-26] MEDS: amLODIPine 5 MG TABLET PO SCH (08:19)
[2018-08-26] MEDS: Thiamine (B-1) 100 MG TABLET PO SCH (08:20)
[2018-08-26] MEDS: Folic Acid 1 MG TABLET PO SCH (08:21)
[2018-08-26 09:30] LABS: Basophils % 0.1 %
[2018-08-26 09:32] LABS: Eosinophils # 0.1 K/mcL (0.0-0.6); Eosinophils % 0.7 %; Hematocrit 27.5 % (37.5-50.1); Immature Granulocytes % 0.6 % (0-4); Immature Platelets 5.1 % (1.1-6.1); Lymphocytes # 1.2 K/mcL (0.6-4.6); Lymphocytes % 14.3 %; Mean Corpuscular HGB Conc 36.4 g/dL (31.6-35.5); Mean Corpuscular Hemoglobin 34.1 pg (28.0-33.3); Mean Corpuscular Volume 93.9 fL (83.0-100.0); Monocytes # 0.6 K/mcL (0.0-1.3); Monocytes % 7.1 %; Neutrophils # 6.4 K/mcL (1.6-8.9); Red Blood Count 2.93 M/mcL (4.19-5.50); Segmented Neutrophils % 77.2 %
--- NOTE | 2018-08-26 09:40 | Palliative Progress Note ---
Date of Encounter: 08/26/18 Time of Encounter: 09:30 - Assessment and plan (1) Altered mental state Current Visit: No Status: Acute Assessment and plan: Remains altered. Continues on Lactulose. Having multiple loose stools. Qualifiers: Altered mental status type: unspecified Qualified Code(s): R41.82 - Altered mental status, unspecified (2) COPD (chronic obstructive pulmonary disease) with emphysema Current Visit: No Status: Chronic Qualifiers: Emphysema type: unspecified Qualified Code(s): J43.9 - Emphysema, unspecified (3) Cirrhosis Current Visit: No Status: Chronic Qualifiers: Hepatic cirrhosis type: alcoholic cirrhosis Ascites presence: unspecified Qualified Code(s): K70.30 - Alcoholic cirrhosis of liver without ascites (4) Goals of care, counseling/discussion Current Visit: Yes Status: Acute Assessment and plan: Spoke with manager social work Ivana - she is working with [facility] regarding placement and possible hospice care. Based on his clinical condition and labs including INR, albumin, liver enzymes, he is definitely eligible for hospice care. (5) Weakness Current Visit: Yes Status: Acute Assessment and plan: PT consult has been ordered and following. - Time Spent With Patient Total time spent is greater than 50% in coordination of care (as documented) at patient's floor/unit and/or counseling patient: - Subjective Interval history: Patient awake but confused. Slow to respond to questions. No visitors present. Denies pain or discomfort. Appears in no distress. Incontinent of stool. Appears by record to be eating 40-70% of meals. - Constitutional Vitals: Abnormal lab results RBC 2.72 M/mcL (4.19-5.50) L 08/25/18 05:17 Hgb 9.2 g/dL (12.9-16.9) L D 08/25/18 05:17 Hct 25.2 % (37.5-50.1) L 08/25/18 05:17 MCH 33.8 pg (28.0-33.3) H 08/25/18 05:17 MCHC 36.5 g/dL (31.6-35.5) H 08/25/18 05:17 RDW 16.7 % (11.5-14.5) H 08/25/18 05:17 Plt Count 107 K/mcL (140-400) L 08/25/18 05:17 Platelet Estimate Slight Decrease (Normal) L 08/25/18 05:17 PT 40.1 Seconds (9.4-12.1) H D 08/23/18 20:09 Sodium 132 mEq/L (136-145) L 08/25/18 05:17 Chloride 108 mEq/L (98-107) H 08/25/18 05:17 Carbon Dioxide 19 mEq/L (23-29) L 08/25/18 05:17 BUN 27 mg/dL (6-20) H 08/25/18 05:17 Creatinine 1.77 mg/dL (0.70-1.30) H 08/25/18 05:17 Est GFR ( Amer) 48 (> 60) L 08/25/18 05:17 Est GFR (Non-Af Amer) 40 (> 60) L 08/25/18 05:17 Calculated Osmolality 279 (280-300) L 08/25/18 05:17 Calcium 8.3 mg/dL (8.6-10.3) L 08/25/18 05:17 Total Bilirubin 14.1 mg/dL (0.3-1.0) H 08/25/18 05:17 Direct Bilirubin 9.3 mg/dL (0.0-0.2) H 08/23/18 20:09 Indirect Bilirubin 5.3 mg/dL (0.0-1.2) H 08/23/18 20:09 AST > 3000 Units/L (13-39) H 08/25/18 05:17 ALT > 500 Units/L (7-52) H 08/25/18 05:17 Alkaline Phosphatase 176 Units/L (34-104) H 08/25/18 05:17 Ammonia 71 mcmol/L (16-53) H 08/25/18 10:49 Albumin 1.8 g/dL (3.5-5.7) L 08/25/18 05:17 Globulin 4.7 g/dL (2.4-3.5) H 08/25/18 05:17 Albumin/Globulin Ratio 0.4 (1.1-2.2) L 08/25/18 05:17 Urine Color [place] (Yellow) A 08/23/18 22:06 Urine Clarity Cloudy (Clear) A 09/24/18 22:06 Ur Specific [place] 1.008 (1.010-1.025) L 08/23/18 22:06 Urine Protein 30 mg/dL (Neg-Trace) H 08/23/18 22:06 Urine Ketones Trace mg/dL (Negative) H 08/23/18 22:06 Urine Bilirubin Large (Negative) H 08/23/18 22:06 Urine Microscopic RBC 3-5 per hpf (0-3) H 08/23/18 22:06 Ethyl Alcohol 12 mg/dL (Less than 10) H 08/23/18 20:09 Hepatitis A IgM Ab Reactive (Nonreactive) H 08/23/18 20:10 Hep Bs Antigen Reactive (Nonreactive) H 08/23/18 20:10 Hep B Core IgM Ab Reactive (Nonreactive) H 08/23/18 20:10 Hepatitis C Ab Screen Reactive (Nonreactive) H 08/23/18 20:10 General appearance: Present: no acute distress - Respiratory Respiratory exam: Present: decreased breath sounds, CTAB - Cardiovascular Cardiovascular exam: Present: +S1, +S2 - GI/Abdominal GI/Abdominal exam: Present: diminished bowel sounds, distended, firm - Extremities Exam Extremities exam: Present: normal capillary refill, normal inspection - Neurological Exam Neurological exam: Present: alert Additional comments: Has difficulty following simple commands, slow to respond. ORTIZ Oriented to name only. - Skin Skin exam: Present: dry, warm Palliative Quality Palliative Quality: Screen for Code Status: Yes, Screen for Goals of Care: Yes, Screen for Pain: Yes, If Pain Regimen Started, Initiate Bowel Regimen: NA, Screen for Nausea/Vomitting: Yes - Labs CBC & Chem 7: 08/26/18 08:57 08/25/18 05:17 - ABG Interpretation ABG results: PT/INR, D-dimer PT 40.1 Seconds (9.4-12.1) H D 08/23/18 20:09 Consult Discharge Plan - Plan Referrals: NONE,PCP [Primary Care Provider] -
[2018-08-26 09:46] LABS: Platelet Count 94 K/mcL (140-400)
[2018-08-26 10:06] LABS: Calcium 8.3 mg/dL (8.6-10.3); Potassium 3.4 mEq/L (3.5-5.1)
[2018-08-26] MEDS: Budesonide/Formoterol 160/4.5 1 PUFF INH IH SCH ×2 (10:49→22:24)
--- NOTE | 2018-08-26 16:00 | Event Note ---
Date of Encounter: 08/26/18 Time of Encounter: 16:00 Spoke with Ivana SHAVER, and pt sister Damari via telephone. Damari would like for pt to discharge to [facility] and have [facility] participate in his care. Referral called to [facility] and asked they contact pt sister in am to coordinate enrollment. D/W Dr. Goel. Anticipate d/c tomorrow.
--- NOTE | 2018-08-26 19:10 | Internal Med Progress Note ---
Hospitalist Progress Note - Encounter Date of Encounter: 08/26/18 Time of Encounter: 11:00 - Subjective Interval History: Patient with no change in mental status this morning as he continues to be altered and confused secondary to hepatic encephalopathy due to liver failure with long history of alcohol abuse. Patient seems to be deteriorating clinically altered mental status started improving with lactulose Discussed with patient's sister over the phone about patient's poor prognosis of liver failure due to alcoholic cirrhosis and she is agreeable with palliative care recommendations for hosp[facility] care at [facility] - Exam Vitals: Temp Pulse Resp BP Pulse Ox 97.8 F 67 18 113/68 95 08/26/18 15:53 08/26/18 15:53 08/26/18 15:53 08/26/18 15:53 08/26/18 15:53 Exam: Gen.: Patient not alert or oriented this morning ENT: Sclera icterus Cardiovascular: Normal S1 and S2 regular rate rhythm no murmurs rubs or gallops Abdomen: Soft but distended Extremities: No lower extremity edema Skin: Jaundice - Assessment and Plan (1) Hepatic encephalopathy Current Visit: Yes Status: Acute Assessment and Plan: Patient seems to be deteriorating clinically altered mental status started improving with lactulose Discussed with patient's sister over the phone about patient's poor prognosis of liver failure due to alcoholic cirrhosis and she is agreeable with palliative care recommendations for hospice care at [facility] (2) Liver failure Current Visit: Yes Status: Acute Assessment and Plan: Very poor prognosis; plan for hospice at [facility] as above (3) Hyperammonemia Current Visit: No Status: Acute Assessment and Plan: Continue scheduled lactulose (4) Hyponatremia Current Visit: No Status: Acute Assessment and Plan: Suspect secondary to chronic alcohol consumption/dependency Fluid restrict in addition to giving gentle normal saline (5) Hepatitis C Current Visit: No Status: Chronic Assessment and Plan: Patient with history of hepatitis (6) Goals of care, counseling/discussion Current Visit: Yes Status: Acute Assessment and Plan: Discussed with patient's sister over the phone about patient's poor prognosis of liver failure due to alcoholic cirrhosis and she is agreeable with palliative care recommendations for hosp[facility] care at [facility] (7) DVT prophylaxis Current Visit: No Status: Acute Assessment and Plan: SCDs - Time Spent with Patient Total time spent is greater than 50% in coordination of care (as documented) at patient's floor/unit and/or counseling patient: Internal Medicine: Result - Labs CBC & Chem 7: 08/26/18 08:57 08/26/18 08:57 Labs: Short CBC 08/26/18 Range/Units 08:57 WBC 8.3 (4.3-11.1) K/mcL Hgb 10.0 L (12.9-16.9) g/dL Hct 27.5 L (37.5-50.1) % Plt Count 94 L (140-400) K/mcL Neutrophils # 6.4 (1.6-8.9) K/mcL BMP 08/26/18 08:57 Sodium 127 L Potassium 3.4 L Chloride 104 Carbon Dioxide 17 L BUN 33 H Creatinine 2.26 H Glucose 92 Calcium 8.3 L - ABG Interpretation ABG results: PT/INR, D-dimer PT 40.1 Seconds (9.4-12.1) H D 08/23/18 20:09 Consult Discharge Plan - Plan Referrals: NONE,PCP [Primary Care Provider] - (2) Liver failure Qualifiers: Liver failure chronicity: unspecified chronicity Hepatic coma status: without hepatic coma Qualified Code(s): K72.90 - Hepatic failure, unspecified without coma (5) Hepatitis C Qualifiers: Viral hepatitis chronicity: unspecified Hepatic coma status: without hepatic coma Qualified Code(s): B19.20 - Unspecified viral hepatitis C without hepatic coma
[2018-08-27] MEDS: *HR* Heparin 5,000 UNIT/ML VIAL SQ SCH (06:30)
[2018-08-27] MEDS: Budesonide/Formoterol 160/4.5 1 PUFF INH IH SCH (07:41)
[2018-08-27] MEDS ORDERED: 0.9 % Sodium Chloride 1,000 ML IVC ONE ×2 (08:38→11:50)
[2018-08-27] MEDS ORDERED: 0.9 % Sodium Chloride 1,000 ML ONE (08:42)
[2018-08-27 09:00] LABS: Basophils % 0.1 %; Eosinophils % 0.2 %; Hematocrit 26.4 % (37.5-50.1); Hemoglobin 9.5 g/dL (12.9-16.9); Immature Granulocytes % 0.8 % (0-4); Lymphocytes # 1.1 K/mcL (0.6-4.6); Lymphocytes % 11.1 %; Mean Corpuscular Hemoglobin 33.7 pg (28.0-33.3); Mean Corpuscular Volume 93.6 fL (83.0-100.0); Mean Platelet Volume 11.2 fL (9.4-12.4); Monocytes # 0.5 K/mcL (0.0-1.3); Monocytes % 5.4 %; Red Blood Count 2.82 M/mcL (4.19-5.50); Red Cell Distribution Width 17.3 % (11.5-14.5); Segmented Neutrophils % 82.4 %
[2018-08-27] MEDS ORDERED: 0.9 % Sodium Chloride 1,000 ML IVC SCH (09:00)
[2018-08-27 09:01] LABS: Platelet Count 86 K/mcL (140-400)
[2018-08-27 09:24] LABS: Calcium 7.8 mg/dL (8.6-10.3); Potassium 3.9 mEq/L (3.5-5.1)
[2018-08-27] MEDS ORDERED: Lactulose 200 GM, Sodium Chloride IRRigation 700 ML RC ONE (10:32)
--- NOTE | 2018-08-27 10:44 | Palliative Progress Note ---
Date of Encounter: 08/27/18 Time of Encounter: 10:00 - Assessment and plan (1) Altered mental state Current Visit: No Status: Acute Assessment and plan: Patient continues to be altered. Stable. Qualifiers: Altered mental status type: unspecified Qualified Code(s): R41.82 - Altered mental status, unspecified (2) Hyperammonemia Current Visit: No Status: Acute Assessment and plan: Ammonia increased to 124. Patient's lactulose had to be held due to patient's mentation. Sister Mira notified, verbalized understanding. (3) Alcoholism /alcohol abuse Current Visit: No Status: Chronic Assessment and plan: CIWA protocol in place. (4) Hepatic encephalopathy Current Visit: Yes Status: Acute (5) Liver failure Current Visit: Yes Status: Acute Qualifiers: Liver failure chronicity: unspecified chronicity Hepatic coma status: without hepatic coma Qualified Code(s): K72.90 - Hepatic failure, unspecified without coma (6) Goals of care, counseling/discussion Current Visit: Yes Status: Acute Assessment and plan: Attempted to speak with patient regarding goals of care, not really responding today. Spoke with Ottoniel regarding ECF placement, [facility] has accepted patient with [facility]. Spoke with Hoa at [facility] regarding advisement for prescriptions, informed to give prescriptions on paper and send to ECF. Spoke with Mira and informed Mira of low BP and poor overall prognosis. Patient to be discharged today with [facility] to [facility]. Notified Alexsandra PARK of prescriptions to send to [facility] and need to call patient's sister at time of discharge. Notified Dr. Goel of Prescriptions for Roxanol and Ativan PRN. (7) Weakness Current Visit: Yes Status: Acute (8) Hypotension Current Visit: Yes Status: Acute Assessment and plan: Patient's blood pressure 77/44. Management per primary team. Notified by Alexsandra PARK was ordered 1L fluid bolus and continuous fluids at 75 until time of discharge. Qualifiers: Hypotension type: unspecified hypotension type Qualified Code(s): I95.9 - Hypotension, unspecified - Time Spent With Patient Total time spent is greater than 50% in coordination of care (as documented) at patient's floor/unit and/or counseling patient: - Subjective Interval history: Patient lying on right side upon arrival for assessment. No family present at bedside. Patient is alert to person and place; however, remains confused and requires multiple reorientations for conversation with delays in responses. Denies pain and shortness of breath. Did not respond when inquiring for nausea and vomiting. Abdomen continues to be swelling. Patient's ammonia continues to raise despite Lactulose with 2 episodes of inability to administered Lactulose due to coherence. Spoke with Ottoniel SHAVER regarding [facility] acceptance, bed available today. Spoke with patient's sister Mira regarding placement. Mira verbalized agreement for discharge plan to [facility] with [facility]. Expressed concern over drop in blood pressure and continued deterioration in condition. Mira expressed understanding and requested to receive a discharge at time of leaving from primary RN to know when patient will arrive to [facility]. Notified Alexsandra RN of need to call [facility], [facility], and patient's sister at time of discharge. - Constitutional Vitals: Abnormal lab results RBC 2.82 M/mcL (4.19-5.50) L 08/27/18 08:44 Hgb 9.5 g/dL (12.9-16.9) L 08/27/18 08:44 Hct 26.4 % (37.5-50.1) L 08/27/18 08:44 MCH 33.7 pg (28.0-33.3) H 08/27/18 08:44 MCHC 36.0 g/dL (31.6-35.5) H 08/27/18 08:44 RDW 17.3 % (11.5-14.5) H 08/27/18 08:44 Plt Count 86 K/mcL (140-400) L 08/27/18 08:44 Platelet Estimate Slight Decrease (Normal) L 08/25/18 05:17 PT 40.1 Seconds (9.4-12.1) H D 08/23/18 20:09 Sodium 132 mEq/L (136-145) L 08/27/18 08:44 Carbon Dioxide 18 mEq/L (23-29) L 08/27/18 08:44 BUN 40 mg/dL (6-20) H 08/27/18 08:44 Creatinine 3.05 mg/dL (0.70-1.30) H 08/27/18 08:44 Est GFR ( Amer) 26 (> 60) L 08/27/18 08:44 Est GFR (Non-Af Amer) 21 (> 60) L 08/27/18 08:44 Glucose 51 mg/dL (70-105) L 08/27/18 08:44 Calcium 7.8 mg/dL (8.6-10.3) L 08/27/18 08:44 Total Bilirubin 14.1 mg/dL (0.3-1.0) H 08/25/18 05:17 Direct Bilirubin 9.3 mg/dL (0.0-0.2) H 08/23/18 20:09 Indirect Bilirubin 5.3 mg/dL (0.0-1.2) H 08/23/18 20:09 AST > 3000 Units/L (13-39) H 08/25/18 05:17 ALT > 500 Units/L (7-52) H 08/25/18 05:17 Alkaline Phosphatase 176 Units/L (34-104) H 08/25/18 05:17 Ammonia 124 mcmol/L (16-53) H 08/27/18 08:44 Albumin 1.8 g/dL (3.5-5.7) L 08/25/18 05:17 Globulin 4.7 g/dL (2.4-3.5) H 08/25/18 05:17 Albumin/Globulin Ratio 0.4 (1.1-2.2) L 08/25/18 05:17 Urine Color [place] (Yellow) A 08/23/18 22:06 Urine Clarity Cloudy (Clear) A 08/23/18 22:06 Ur Specific [place] 1.008 (1.010-1.025) L 08/23/18 22:06 Urine Protein 30 mg/dL (Neg-Trace) H 08/23/18 22:06 Urine Ketones Trace mg/dL (Negative) H 08/23/18 22:06 Urine Bilirubin Large (Negative) H 08/23/18 22:06 Urine Microscopic RBC 3-5 per hpf (0-3) H 08/23/18 22:06 Ethyl Alcohol 12 mg/dL (Less than 10) H 08/23/18 20:09 Hepatitis A IgM Ab Reactive (Nonreactive) H 08/23/18 20:10 Hep Bs Antigen Reactive (Nonreactive) H 08/23/18 20:10 Hep Bs Ag Confirmation POSITIVE (Non Confirmed) A 08/23/18 20:10 Hep B Core IgM Ab Reactive (Nonreactive) H 08/23/18 20:10 Hepatitis C Ab Screen Reactive (Nonreactive) H 08/23/18 20:10 General appearance: Present: disheveled, no acute distress, thin - Head Head exam: Present: atraumatic, normocephalic - Eye Eye exam: Present: conjuntiva pink. Absent: normal appearance, periorbital swelling, periorbital tenderness Pupils: Present: normal accommodation Additional comments: Jaundiced sclera noted. - ENT ENT exam: Present: mucous membranes dry, normal external ear exam - Neck Neck exam: Present: full ROM, normal inspection - Respiratory Respiratory exam: Present: wheezes. Absent: accessory muscle use, respiratory distress - Cardiovascular Cardiovascular exam: Present: +S1, +S2 - GI/Abdominal GI/Abdominal exam: Present: distended, normal bowel sounds, soft. Absent: firm , guarding, tenderness - Rectal Rectal exam: Present: deferred - Extremities Exam Extremities exam: Present: full ROM. Absent: calf tenderness, pedal edema, tenderness - Back Exam Back exam: Present: full ROM, normal inspection - Neurological Exam Neurological exam: Present: altered. Absent: oriented X3 - Psychiatric Psychiatric exam: Present: flat affect - Skin Skin exam: Present: intact, warm. Absent: normal color (jaundice increasing) Palliative Quality Palliative Quality: Screen for Code Status: Yes, Screen for Goals of Care: Yes, Screen for Pain: Yes, If Pain Regimen Started, Initiate Bowel Regimen: NA, Screen for Nausea/Vomitting: Yes - Labs CBC & Chem 7: 08/27/18 08:44 08/27/18 08:44 Labs: Laboratory Results - last 24 hr 08/27/18 08/27/18 08/27/18 08:44 08:44 08:44 WBC 9.7 RBC 2.82 L Hgb 9.5 L Hct 26.4 L MCV 93.6 MCH 33.7 H MCHC 36.0 H RDW 17.3 H Plt Count 86 L MPV 11.2 Immature Gran % 0.8 Seg Neutrophils % 82.4 Lymphocytes % 11.1 Monocytes % 5.4 Eosinophils % 0.2 Basophils % 0.1 Neutrophils # 8.0 Lymphocytes # 1.1 Monocytes # 0.5 Eosinophils # 0.0 Basophils # 0.0 Sodium 132 L Potassium 3.9 Chloride 106 Carbon Dioxide 18 L BUN 40 H Creatinine 3.05 H Est GFR ( Amer) 26 L Est GFR (Non-Af Amer) 21 L BUN/Creatinine Ratio 13 Glucose 51 L Calculated Osmolality 281 Calcium 7.8 L Ammonia 124 H - ABG Interpretation ABG results: PT/INR, D-dimer PT 40.1 Seconds (9.4-12.1) H D 08/23/18 20:09 Consult Discharge Plan - Plan Referrals: NONE,PCP [Primary Care Provider] - Prescriptions: LORazepam Oral Conc [Ativan Oral Conc] 1 mg PO Q4HR PRN 4 Days #15 mls PRN Reason: Agitation/Anxiety MORPHINE SUL Oral CONC [Roxanol Oral Conc] 5 mg PO Q4H PRN 4 Days #15 ml PRN Reason: pain/dyspnea
--- NOTE | 2018-08-27 11:29 | Discharge Summary ---
- NOTES TO OUTPATIENT PROVIDER Notes to Outpatient Provider: none Date of Encounter: 08/27/18 Time of Encounter: 11:00 - Discharge Diagnosis (1) Hepatic encephalopathy Priority: Primary Status: Acute (2) Liver failure Priority: Primary Status: Acute Qualifiers: Liver failure chronicity: unspecified chronicity Hepatic coma status: without hepatic coma Qualified Code(s): K72.90 - Hepatic failure, unspecified without coma (3) Hyperammonemia Priority: Secondary Status: Acute (4) Hyponatremia Priority: Secondary Status: Acute (5) Hepatitis C Priority: Secondary Status: Chronic Qualifiers: Viral hepatitis chronicity: unspecified Hepatic coma status: without hepatic coma Qualified Code(s): B19.20 - Unspecified viral hepatitis C without hepatic coma Hospital course: Patient is a 58-year-old male with past medical history significant for alcohol dependence/abuse, hypertension, mood disorder and GERD who presents to the ER on 08/24/18 due to altered mental status. Patient not able to give much history due to altered mental status and family members not present at the bedside. In the ER, patient was found to have an ammonia level of 115, alk phosphatase 233, ALT greater than 500, AST greater than 3000, indirect bilirubin 5.3, direct bilirubin 9.3 and total bilirubin of 14.6. 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 Palliative services was consulted from ER. Patient was given 1 dose of lactulose in the ER and will be admitted to the medical surgical floor for palliative care. During patients hospital stay his hepatic encephalopathy did not improve in spite of administration of lactulose. In addition patients liver enzymes never improved as well. Palliative Care was consulted and discussion with patients sister with in agreement that patient will be placed under hospice care. Patient will be discharged to hospice inpatient here at [facility]. - Time Spent with Patient Total time spent providing and/or coordinating discharge services: Less than 30 minutes - Discharge Medications Prescriptions: LORazepam Oral Conc [Ativan Oral Conc] 1 mg PO Q4HR PRN 4 Days #15 mls PRN Reason: Agitation/Anxiety MORPHINE SUL Oral CONC [Roxanol Oral Conc] 5 mg PO Q4H PRN 4 Days #15 ml PRN Reason: pain/dyspnea Home Medications: Amlodipine Besylate/Benazepril [Lotrel 10-20 mg Capsule] 1 each PO DAILY [History] Omeprazole [PriLOSEC] 20 mg PO BID 09/29/16 [History] Albuterol Sulfate [Ventolin Hfa] 2 puff IH Q6H PRN 08/06/18 [History] Fluticasone/Vilanterol [Breo Ellipta 100-25 Mcg INH] 1 puff IH DAILY 08/06/18 [ History] Paroxetine [Paxil] 20 mg PO DAILY 08/06/18 [History] hydrOXYzine pamoate [HydrOXYzine Pamoate] 25 - 50 mg PO Q6H PRN 08/06/18 [ History] Folic Acid 1 mg PO DAILY #30 tablet 08/09/18 [Rx] Thiamine (B-1) [Vitamin B-1] 100 mg PO DAILY #30 tablet 08/09/18 [Rx] hydroCHLOROthiazide [Hydrochlorothiazide] 25 mg PO DAILY #30 tablet 08/09/18 [Rx ] Carvedilol [Coreg] 25 mg PO BID 08/23/18 [History] LORazepam Oral Conc [Ativan Oral Conc] 1 mg PO Q4HR PRN 4 Days #15 mls 08/27/18 [Rx] MORPHINE SUL Oral CONC [Roxanol Oral Conc] 5 mg PO Q4H PRN 4 Days #15 ml [Rx] Allergies/Adverse Reactions: 3 Allergy/AdvReac Type Severity Reaction Status Date / Time No Known Allergies Allergy Verified 09/23/16 14:46 Date of admission: 08/26/18 08:09 Primary care physician: PCP NONE - Constitutional Vitals: Temp Pulse Resp BP Pulse Ox 96.1 F L 59 16 77/48 99 08/27/18 07:56 08/27/18 07:56 08/27/18 07:56 08/27/18 07:56 08/27/18 07:56 General appearance: Present: A&O X 2 Exam: Gen.: Patient not alert or oriented this morning ENT: Sclera icterus Cardiovascular: Normal S1 and S2 regular rate rhythm no murmurs rubs or gallops Abdomen: Soft but distended Extremities: No lower extremity edema Skin: Jaundice - Patient Status Disposition: Still a Patient Condition: Serious - Discharge Instructions Follow Up With: NONE,PCP [Primary Care Provider] -
--- NOTE | 2018-08-27 11:30 | Physician Discharge Referral ---
ExtendedCare Referral Info Institutional Level of Care: Intermediate - Diagnosis (1) Hepatic encephalopathy Status: Acute (2) Liver failure Status: Acute (3) Hyperammonemia Status: Acute (4) Hyponatremia Status: Acute (5) Hepatitis C Status: Chronic (6) Goals of care, counseling/discussion Status: Acute (7) DVT prophylaxis Status: Acute - Transfer Medications Prescriptions: LORazepam Oral Conc [Ativan Oral Conc] 1 mg PO Q4HR PRN 4 Days #15 mls PRN Reason: Agitation/Anxiety MORPHINE SUL Oral CONC [Roxanol Oral Conc] 5 mg PO Q4H PRN 4 Days #15 ml PRN Reason: pain/dyspnea Home Medications: Amlodipine Besylate/Benazepril [Lotrel 10-20 mg Capsule] 1 each PO DAILY [History] Omeprazole [PriLOSEC] 20 mg PO BID 09/29/16 [History] Albuterol Sulfate [Ventolin Hfa] 2 puff IH Q6H PRN 08/06/18 [History] Fluticasone/Vilanterol [Breo Ellipta 100-25 Mcg INH] 1 puff IH DAILY 08/06/18 [ History] Paroxetine [Paxil] 20 mg PO DAILY 08/06/18 [History] hydrOXYzine pamoate [HydrOXYzine Pamoate] 25 - 50 mg PO Q6H PRN 08/06/18 [ History] Folic Acid 1 mg PO DAILY #30 tablet 08/09/18 [Rx] Thiamine (B-1) [Vitamin B-1] 100 mg PO DAILY #30 tablet 08/09/18 [Rx] hydroCHLOROthiazide [Hydrochlorothiazide] 25 mg PO DAILY #30 tablet 08/09/18 [Rx ] Carvedilol [Coreg] 25 mg PO BID 08/23/18 [History] LORazepam Oral Conc [Ativan Oral Conc] 1 mg PO Q4HR PRN 4 Days #15 mls 08/27/18 [Rx] MORPHINE SUL Oral CONC [Roxanol Oral Conc] 5 mg PO Q4H PRN 4 Days #15 ml [Rx] Allergies/Adverse Reactions: 3 Allergy/AdvReac Type Severity Reaction Status Date / Time No Known Allergies Allergy Verified 09/23/16 14:46 - Respiratory Orders Smoking Cessation: Smoking cessation has been advised. For more information, call the [employer] Tobacco Quit Line at 3-972-HJPH-NOW. CERTIFICATION: I certify that the transfer of the above named patient to an Extended Care Facility is necessary for the continuing treatment of the diagnosis listed. The above information is true and accurate reflection of patient's current condition. Confidential - Redisclosure prohibited without a patient's written consent.
[2018-08-27] MEDS: Folic Acid 1 MG TABLET PO SCH (11:47)
[2018-08-27] MEDS: Lactulose Oral Soln 20 GM/30 ML UDC PO SCH ×2 (11:47→13:27)
[2018-08-27] MEDS: Thiamine (B-1) 100 MG TABLET PO SCH (11:47)
[2018-08-27] MEDS: amLODIPine 5 MG TABLET PO SCH (11:47)
[2018-08-27 16:42] VITALS: BP 87/54
--- NOTE | 2018-08-28 12:00 | Electrocardiograph Report ---
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
== END 2018-08-27 17:19 | disposition still patient (30) | DRG 279 ==
LOC: 2ANU 19:57 → EMEROOARM 19:57 → SUATTDRO 08-24 04:08 → 2ANU 08-24 04:57
PROVIDERS: ADMIT Pediatrics; ATTEND Hospitalist

== ENCOUNTER 2018-08-27 13:25 | Inpatient (IN) ==
[2018-08-27] MEDS ORDERED: Atropine Sulfate 1% 40 DROP/2 ML BOTTLE SL PRN (13:39)
[2018-08-27] MEDS ORDERED: MORPHINE SUL Oral CONC 10 MG/0.5 ML ORAL.SYG PO PRN (13:39)
[2018-08-27] MEDS ORDERED: Ondansetron 4 MG/2 ML VIAL IVP PRN (13:39)
[2018-08-27] MEDS ORDERED: *HR* LORazepam Oral Conc 2 MG/ML PO PRN (13:39)
[2018-08-27] MEDS ORDERED: Albuterol 2.5 MG/3 ML NEBULIZER IH PRN (13:39)
[2018-08-27] MEDS ORDERED: Scopolamine Patch 1.5 MG PATCH.TD72 TD SCH (13:45)
[2018-08-27] MEDS: Lactulose Oral Soln 20 GM/30 ML UDC PO SCH ×2 (19:18→23:25)
--- NOTE | 2018-08-31 11:11 | Pallative History & Physical ---
Date of Encounter: 08/31/18 Time of Encounter: 14:00 Assessment and Plan (1) Hospice care Status: Acute Patient admitted to hospice for end of life care comfort measures only (2) Altered mental state Status: Acute Qualifiers: Altered mental status type: unspecified Qualified Code(s): R41.82 - Altered mental status, unspecified (3) Hyperammonemia Status: Acute (5) Goals of care, counseling/discussion Status: Acute Pt admitted to hospice [facility] for end of life care. Family agreeable with plan. Internal Medicine - H&P: HPI Chief complaint: Altered mental status Admitted From: Intrahospital Transfer Plans for Post Hospital Care: at Medical Facility History of present illness: Mr. Taylor is a 58 year old male admitted to [place] for AMS on 08/24/18. PMH: Arthritis, GERD, COPD, Hyperlipidemia, HTN, Liver disease, Seizures, Syncope, Anxiety, Panic Disorder, and Hepatitis. At the time of admission patient was positive for alcohol, and had elevated amonia. Pt was treated for alcoholic encephalopathy with some improvement. Palliative care discussed with pt, and he designated his sister Mira as his POA. Successively, patient became increasingly more confused and non verbal. Sister decided to make pt DNRCC and opted for hospice care according to pt's previous wishes. Patient was admitted to hospice [facility] for end of life care. Past Med Surg Social Fam HX - Past Medical History Medical history: arthritis, COPD, GERD, hyperlipidemia, hypertension, liver disease, seizures, syncope, other Psychiatric history: anxiety, panic disorder - Past Surgical History Surgical History: other Additional surgical history: eye surgery - Social History Smoking Status: Current every day smoker Smokeless Tobacco Status: No Alcohol use: heavy Drug use: methamphetamine Internal Medicine - H&P: Meds Amlodipine Besylate/Benazepril [Lotrel 10-20 mg Capsule] 1 each PO DAILY [History] Omeprazole [PriLOSEC] 20 mg PO BID 09/29/16 [History] Albuterol Sulfate [Ventolin Hfa] 2 puff IH Q6H PRN 08/06/18 [History] Fluticasone/Vilanterol [Breo Ellipta 100-25 Mcg INH] 1 puff IH DAILY 08/06/18 [ History] Paroxetine [Paxil] 20 mg PO DAILY 08/06/18 [History] hydrOXYzine pamoate [HydrOXYzine Pamoate] 25 - 50 mg PO Q6H PRN 08/06/18 [ History] Folic Acid 1 mg PO DAILY #30 tablet 08/09/18 [Rx] Thiamine (B-1) [Vitamin B-1] 100 mg PO DAILY #30 tablet 08/09/18 [Rx] hydroCHLOROthiazide [Hydrochlorothiazide] 25 mg PO DAILY #30 tablet 08/09/18 [Rx ] Carvedilol [Coreg] 25 mg PO BID 08/23/18 [History] LORazepam Oral Conc [Ativan Oral Conc] 1 mg PO Q4HR PRN 4 Days #15 mls 08/27/18 [Rx] MORPHINE SUL Oral CONC [Roxanol Oral Conc] 5 mg PO Q4H PRN 4 Days #15 ml [Rx] 3 Allergy/AdvReac Type Severity Reaction Status Date / Time No Known Allergies Allergy Verified 09/23/16 14:46 ROS unobtainable: due to mental status Palliative Care-Exam - Head Head Exam: Present: atraumatic - Respiratory Respiratory exam: Present: CTAB. Absent: accessory muscle use - GI/Abdominal Exam GI/Abdominal exam: Present: diminished bowel sounds, distended - Extremities Exam Extremities exam: Present: full ROM Palliative Quality Palliative Quality: Screen for Code Status: Yes, Screen for Goals of Care: Yes, Screen for Pain: Yes, If Pain Regimen Started, Initiate Bowel Regimen: Yes, Screen for Nausea/Vomitting: Yes Code Status: 08/27/18 13:39 Resuscitation Status: Active [RES] Routine Comment: Resuscitation Status: DNR-Comfort Care
--- NOTE | 2018-08-31 11:30 | Death Note ---
Discharge Sum: Summary - Date and Time Date of admission: 08/27/18 17:35 Date of : 08/28/18 Time of : 07:39 - Summary Details: Mr. Taylor is a 58 year old male admitted to [place] for AMS on 08/24/18. PMH: Arthritis, GERD, COPD, Hyperlipidemia, HTN, Liver disease, Seizures, Syncope, Anxiety, Panic Disorder, and Hepatitis. At the time of admission patient was positive for alcohol, and had elevated amonia. Pt was treated for alcoholic encephalopathy with some improvement. Palliative care discussed with pt, and he designated his sister Mira as his POA. Successively, patient became increasingly more confused and non verbal. Sister decided to make pt DNRCC and opted for hospice care according to pt's previous wishes. Patient was admitted to hospice [facility] for end of life care. Patient was kept comfortable and peacefully at 0739 on . - Additional Data Confirmation of as documented by pronouncing clinician: no pulse, no respirations, no heart sounds, pupils fixed and dilated Family: contacted Attending/PCP notified?: Yes Attending physician: Crystal Escobar MD Was code activated?: No Autopsy requested?: No sock lining examiner notified?: No Organ bank notified?: Yes Advance directives: Yes Hospice patient?: Yes Discharge Sum: Diag - PCOD Probable Cause of : Hepatic encephalopathy Discharge Sum: Prov - Provider Primary care physician: PCP NONE Admitting clinician: Crystal Escobar Attending physician on admission: Crystal Escobar Consults: 08/27/18 13:39 Consult to Palliative Care [CONS] Routine Comment: Consulting Provider: Palliative Care [place] Reason for Consult: GIP Management Call Completed: No
== END 2018-08-28 07:30 | disposition expired | DRG 951 ==
LOC: 2ANU 17:35
PROVIDERS: ADMIT Internal Medicine Hospice and Palliative Medicine; ATTEND Internal Medicine Hospice and Palliative Medicine